=== PATIENT | female | born 1955 | race Caucasian/White ===

== ENCOUNTER 2020-08-13 17:54 | Inpatient (IN) | payer OTHER, MEDICARE ==
--- NOTE | 2020-08-13 18:38 | RADIOLOGY REPORT (SQ) ---
EXAM DESCRIPTION: ANKLE LEFT COMPLETE IMAGES COMPLETED DATE/TIME: 08/13/2020 6:25 pm REASON FOR STUDY: bed 13 - fall +deformity COMPARISON: None. NUMBER OF VIEWS: Three views. TECHNIQUE: AP, lateral, and oblique radiographic images acquired of the left ankle. LIMITATIONS: None. FINDINGS: MINERALIZATION: Normal. BONES: Comminuted fractures of the distal tibia and fibula. Distal fibular fragment is displaced med ially. There is a butterfly fragment off the TB which is displaced medially as well. JOINTS: No effusions. SOFT TISSUES: No soft tissue swelling. No foreign body. OTHER: No other significant finding. IMPRESSION: Comminuted distal tibia and fibular fractures as described. TECHNICAL DOCUMENTATION: JOB ID: [id number] 2010 [employer]- All Rights Reserved Reading location - IP/workstation name: [email or web address]
[2020-08-13] MEDS ORDERED: MORPHINE SULFATE 10 MG/ML INJ IV ONE (18:42)
[2020-08-13] MEDS ORDERED: ONDANSETRON HCL INJ/PF 4 MG/2 ML SDV IV ONE (18:42)
--- NOTE | 2020-08-13 19:01 | ER Document Report ---
ED General - General Stated Complaint: LEFT ANKLE PAIN Time Seen by Provider: 08/13/20 18:33 - HPI Notes: Chief complaint: Injury left lower leg History of present illness: Previously healthy 65-year-old female her left lower leg while attempting to feed her cat at home about 1 hour prior to arrival here. She says she simply "missed a step" and twisted the left lower leg. She heard a snap and felt pain. She was able to sit down without falling and denies other injuries. EMS was called. They applied a splint and administered analgesia during transport. She complains of 5/10 pain. She is a non-smoker. No regular medications. No known allergies. Last meal greater than 6 hours ago. - Related Data Allergies/Adverse Reactions: No Known Allergies Allergy (Unverified 08/13/20 19:39) Past Medical History - General Information source: Patient - Social History Smoking Status: Never Smoker Frequency of alcohol use: Heavy Drug Abuse: None Family History: Reviewed & Not Pertinent - Medical History Medical History: Negative Surgical Hx: Negative Review of Systems - Review of Systems Notes: Constitutional: Negative for fever. HENT: Negative for sore throat. Eyes: Negative for visual changes. Cardiovascular: Negative for chest pain. Respiratory: Negative for shortness of breath. Gastrointestinal: Negative for abdominal pain, vomiting or diarrhea. Genitourinary: Negative for dysuria. Musculoskeletal: As per HPI. Skin: Negative for rash. Neurological: Negative for headaches, weakness or numbness. 10 point ROS negative except as marked above and in HPI. Physical Exam - Vital signs Vitals: Temp Pulse Resp BP Pulse Ox 98.5 F 71 20 105/61 91 L 08/13/20 18:28 08/13/20 18:28 08/13/20 18:28 08/13/20 18:28 08/13/20 18:28 - Notes Notes: GENERAL: Slender female approximately stated age appearing in moderate discomfort with EMS splint on left lower leg.. SKIN: Good turgor no rashes. HEAD: Normocephalic atraumatic. EYES: PERRLA. EOMI. Conjunctivae and sclerae clear. EARS: CANALS AND TMS CLEAR. NOSE: CLEAR. MOUTH: Moist mucosa. Good dentition. No stridor or edema. No drooling. NECK: Supple. No masses or thyromegaly. No adenopathy. Carotids 2+ without bruits. No JVD. BACK: Symmetrical without tenderness. CHEST: Respirations unlabored. Breath sounds clear and symmetrical. HEART: Regular rhythm. No murmur gallop or rub. ABDOMEN: Soft nontender without masses, organomegaly or rebound. Bowel sounds normally active. No bruits. GENITALIA: Deferred. EXTREMITIES: Obvious deformity left lower leg with splint in situ. Distal capillary refill, motor function and sensation are intact. Dorsalis pedis posterior tibial pulses are 3+. Moderate degenerative changes of intra- phalangeal joints of both hands. Cap refill less than 1.5 seconds. Dorsalis pedis and posterior tibial pulses 3+ and symmetrical. NEUROLOGICAL: GCS 15. Alert and oriented x3. Normal gait. Fluent speech. Cranial nerves II through XII intact. Sensorimotor and cerebellar normal. Normal tone. PSYCHIATRIC: Appropriate affect. Course - Re-evaluation Re-evalutation: 08/13/20 21:00 Upon arrival son patient advises me that she drinks "about 1 bottle" of wine every day. She lives on the third floor. Findings are discussed with on-call orthopedist Dr. Juvencio Barger who is agreed to admit the patient. I splinted the extremity per his recommendation and will order a CT of the ankle without contrast as per his request. - Vital Signs Vital signs: Temp Pulse Resp BP Pulse Ox 98.5 F 71 20 105/61 91 L 08/13/20 18:28 08/13/20 18:28 08/13/20 18:28 08/13/20 18:28 08/13/20 18:28 Procedures - Immobilization Left Leg Pre-Proc Neuro Vasc Exam: Normal Immobilizer type: Short Leg Posterior, Other - Reverse sugar tong Performed by: Provider Post-Proc Neuro Vasc Exam: Normal Alignment checked and good: Yes Discharge - Discharge Clinical Impression: Fracture of tibia with fibula, left, closed Qualifiers: Encounter type: initial encounter Qualified Code(s): S82.202A - Unspecified fracture of shaft of left tibia, initial encounter for closed fracture; S82.402A - Unspecified fracture of shaft of left fibula, initial encounter for closed fracture Condition: Good Disposition: ADMITTED INPATIENT Admitting Provider: Hong Barger Unit Admitted: Surgical Floor
[2020-08-13] MEDS ORDERED: ONDANSETRON HCL INJ/PF 4 MG/2 ML SDV IV PRN (20:21)
[2020-08-13] MEDS ORDERED: MAG HYDROX/AL HYDROX/SIMETH SUSP 30 ML UDCUP PO PRN (20:21)
[2020-08-13 21:18] LABS: INTERNATIONAL RATION (INR) 0.96
[2020-08-13 21:19] LABS: ABSOLUTE MONOCYTES (AUTO) 0.4 10^3/uL (0.1-1.4); ABSOLUTE NEUT (AUTO) 3.3 10^3/uL (1.7-8.2); BASOPHILS % (AUTO) 0.4 % (0-2); EOSINOPHILS % (AUTO) 0.1 % (0-6); HEMOGLOBIN 12.8 g/dL (12.0-15.5); MEAN CORPUSCULAR HEMOGLOBIN 36.4 pg (27.0-33.4); MEAN CORPUSCULAR HGB CONC 34.6 g/dL (32.0-36.0); MEAN CORPUSCULAR VOLUME 105 fl (80-97); MONOCYTES % (AUTO) 8.2 % (3-13); PLATELET COUNT 179 10^3/uL (150-450); RED BLOOD COUNT 3.51 10^6/uL (3.72-5.28); RED CELL DISTRIBUTION WIDTH 13.2 % (11.5-14.0); SEGMENTED NEUTROPHILS % (AUTO) 70.3 % (42-78); TOTAL CELLS COUNTED % (AUTO) 100 %; WHITE BLOOD COUNT 4.7 10^3/uL (4.0-10.5)
[2020-08-13 21:43] LABS: ALBUMIN 4.1 g/dL (3.5-5.0); ALCOHOL 227 mg/dL (NONE DETECTED); ALKALINE PHOSPHATASE 117 U/L (38-126); ANION GAP 11 (5-19); ASPARTATE AMINO TRANSFERASE 412 U/L (14-36); BILIRUBIN,DIRECT 0.6 mg/dL (0.0-0.4); BILIRUBIN,TOTAL 1.6 mg/dL (0.2-1.3); BLOOD UREA NITROGEN 6 mg/dL (7-20); CALCIUM 8.7 mg/dL (8.4-10.2); CARBON DIOXIDE 28 mmol/L (22-30); CHLORIDE 98 mmol/L (98-107); GLUCOSE 102 mg/dL (75-110); POTASSIUM 3.6 mmol/L (3.6-5.0); TOTAL PROTEIN 6.3 g/dL (6.3-8.2)
--- NOTE | 2020-08-13 22:06 | RADIOLOGY REPORT (SQ) ---
EXAM DESCRIPTION: CT LOWER EXTREMITY WITHOUT IV CONTRAST COMPLETED DATE/TME: 08/13/2020 20:58 CLINICAL HISTORY: 65 years, Female, ankle injury COMPARISON: Plain films today's date TECHNIQUE: 383 Images stored on PACS. All CT scanners at this facility use dose modulation, iterative reconstruction, and/or weight based dosing when appropriate to reduce radiation dose to as low as reasonably achievable (ALARA). [facility]: Dose Right [facility]: CareDose [facility]: Dose Right [facility]: Teradose 4D [facility]: Baitianshi LIMITATIONS: None. FINDINGS: Comminuted and displaced fracture deformity of the distal tibial diaphysis with medial displacement of the largest fracture fragment by approximately 18 mm. There is also a heavily comminuted and displaced distal fibular diaphyseal fracture with overriding fracture fragments. Associated soft tissue changes. The ankle mortise remains intact. There is a prominent os trigonum noted. The subtalar joint appears intact. Incidental note is made of an intramuscular lipoma of the gastrocnemius musculature. IMPRESSION: Highly comminuted fractures of the distal tibia and fibula. The ankle mortise remains intact TECHNICAL DOCUMENTATION: Quality ID # 436: Final reports with documentation of one or more dose reduction techniques (e.g., Automated exposure control, adjustment of the mA and/or kV according to patient size, use of iterative reconstruction technique) copyright 2011 [employer]- All Rights Reserved
[2020-08-13] MEDS: ZOLPIDEM TARTRATE 5 MG TABLET PO SCH (22:08)
[2020-08-13] MEDS: ACETAMINOPHEN 325 MG TABLET PO SCH (22:09)
[2020-08-14] MEDS: POTASSI CL 20 MEQ/NS 1L 1,000 ML IV PRN ×2 (02:29→11:49)
[2020-08-14] MEDS: PANTOPRAZOLE SODIUM 20 MG TABLET.DR PO SCH (05:21)
[2020-08-14] MEDS: ACETAMINOPHEN 325 MG TABLET PO SCH ×3 (05:21→22:16)
[2020-08-14 06:24] LABS: APPEARANCE,URINE SLIGHTLY-CLOUDY; BILIRUBIN,URINE NEGATIVE (NEGATIVE); COLOR,URINE AMBER; GLUCOSE, URINE NEGATIVE (NEGATIVE); KETONES,URINE 20 mg/dL (NEGATIVE); PROTEIN,URINE 30 mg/dL (NEGATIVE); URINE SPECIFIC GRAVITY 1.028
[2020-08-14 06:37] LABS: URINE AMPHETAMINES SCREEN NEGATIVE; URINE BARBITURATES SCREEN NEGATIVE; URINE BENZODIAZEPINES SCREEN NEGATIVE; URINE COCAINE SCREEN NEGATIVE; URINE MARIJUANA (THC) SCREEN NEGATIVE; URINE METHADONE SCREEN NEGATIVE; URINE PHENCYCLIDINE SCREEN NEGATIVE
--- NOTE | 2020-08-14 07:41 | PDOC H&P ---
History of Present Illness Admission Date/PCP: 08/13/20 21:12 Patient complains of: Left camacho pain History of Present Illness: DI LOGAN is a 65 year old female who reports tripping at home twisting her left leg resulting in a pop and immediate pain and deformity. At that point she was not able to ambulate any further and reports being able to gently place herself down without striking anything else. She denies any other associated injury. Pain is described as aching in nature 6 out of 10 at rest, up to a 9 out of 10 with any potential motion. Pain is improved with pain medication, worsened with activity. She denies any lower extremity numbness or loss of motor function. She denies any progressive pain outside of proportion. Her son who presented with her in the emergency department did report she is a regular alcohol user. Past Medical History Psychiatric Medical History: Denies: Depression Social History Smoking Status: Never Smoker Electronic Cigarette use?: No Frequency of Alcohol Use: Heavy Hx Recreational Drug Use: No Drugs: None Family History Family History: Reviewed & Not Pertinent Parental Family History Reviewed: No Children Family History Reviewed: NA Sibling(s) Family History Reviewed.: NA Medication/Allergy Allergies/Adverse Reactions: No Known Allergies Allergy (Unverified 08/13/20 19:39) Review of Systems Review of Systems: Constitutional: ABSENT: anorexia, chills, night sweats Cardiovascular: ABSENT: chest pain Respiratory: ABSENT: dyspnea Gastrointestinal: ABSENT: vomiting Genitourinary: ABSENT: dysuria Integumentary: ABSENT: rash Neurological: ABSENT: confusion, memory loss, numbness Psychiatric: ABSENT: hallucinations Hematologic/Lymphatic: ABSENT: easy bleeding Physical Exam Vital Signs: Temp Pulse Resp BP Pulse Ox 98.3 F 73 16 114/61 95 08/14/20 01:05 08/14/20 01:05 08/14/20 01:05 08/14/20 01:05 08/14/20 01:05 Intake & Output 08/13/20 08/14/20 08/15/20 06:59 06:59 06:59 Intake Total 0 Output Total 200 Balance -200 Weight 64.2 kg Physical Exam: General appearance: PRESENT: no acute distress, cooperative, well-nourished Head exam: PRESENT: atraumatic, normocephalic Eye exam: PRESENT: EOMI Ear exam: PRESENT: normal external ear exam Mouth exam: PRESENT: neck supple Neck exam: ABSENT: tracheal deviation Respiratory exam: PRESENT: symmetrical, unlabored. ABSENT: accessory muscle use, wheezes Pulses: PRESENT: normal radial pulses, normal dorsalis pedis pulse Vascular exam: PRESENT: normal capillary refill GI/Abdominal exam: ABSENT: distended, firm Extremities exam: PRESENT: full ROM of bilateral shoulders, elbows wrists, knees, hips and ankles without pain Musculoskeletal exam: PRESENT: full ROM, normal inspection of all 4 extremities aside from that noted below. Neurological exam: PRESENT: alert, awake, oriented to person, oriented to place, oriented to time Psychiatric exam: PRESENT: appropriate affect. ABSENT: agitated Focused psych exam: ABSENT: catatonic Skin exam: PRESENT: intact. ABSENT: dry All as above aside from that noted in the HPI and the following: Left lower extremity -Pulses 2+ distally -Compartments soft, palpated about the splint -Sensation grossly intact to L3-4-5 S1 -Motor grossly intact to visible toes Splint currently in place, well positioned. Results Laboratory Results: 08/13/20 20:46 08/13/20 20:46 08/13/20 08/13/20 08/14/20 20:46 20:46 05:45 WBC 4.7 RBC 3.51 L Hgb 12.8 Hct 37.0 MCV 105 H MCH 36.4 H MCHC 34.6 RDW 13.2 Plt Count 179 Seg Neutrophils % 70.3 Sodium 136.7 L Potassium 3.6 Chloride 98 Carbon Dioxide 28 Anion Gap 11 BUN 6 L Creatinine 0.56 Est GFR ( Amer) > 60 Glucose 102 Calcium 8.7 Total Bilirubin 1.6 H AST 412 H Alkaline Phosphatase 117 Total Protein 6.3 Albumin 4.1 Urine Color KAREN Urine Appearance SLIGHTLY-CLOUDY Urine pH 5.0 Ur Specific [place] 1.028 Urine Protein 30 H Urine Glucose (UA) NEGATIVE Urine Ketones 20 H Urine Blood NEGATIVE Urine RBC (Auto) 4 Impressions: Ankle X-Ray 08/13/20 00:00 IMPRESSION: Comminuted distal tibia and fibular fractures as described. Lower Extremity CT 08/13/20 20:58 IMPRESSION: Highly comminuted fractures of the distal tibia and fibula. The ankle mortise remains intact TECHNICAL DOCUMENTATION: Quality ID # 436: Final reports with documentation of one or more dose reduction techniques (e.g., Automated exposure control, adjustment of the mA and/or kV according to patient size, use of iterative reconstruction technique) copyright 2011 [employer]- All Rights Reserved Assessment & Plan - Diagnosis (1) Fracture of tibia with fibula, left, closed Qualifiers: Encounter type: initial encounter Qualified Code(s): S82.202A - Unspecified fracture of shaft of left tibia, initial encounter for closed fracture; S82.402A - Unspecified fracture of shaft of left fibula, initial encounter for closed fracture Is this a current diagnosis for this admission?: Yes Plan: Plan for operative intervention today Currently not receiving DVT prophylaxis but will resume postoperatively Ancef on-call to the OR Bedrest at this time, may consider Downs catheter if needed. Keep n.p.o. Discussed intervention with the patient today and answered all questions as well as covering common risks and benefits of treatment options. Patient is elected to proceed with operative intervention of the left lower leg - Time Anticipated Discharge Disposition: Home, Self Care Anticipated Discharge Timeframe: within 72 hours
[2020-08-14] MEDS: DOCUSATE SODIUM 100 MG CAPSULE PO SCH (09:47)
[2020-08-14] MEDS: MORPHINE SULFATE 10 MG/ML INJ IV PRN (13:48)
[2020-08-14] MEDS ORDERED: MIDAZOLAM 2 MG/2 ML INJ ONE (16:44)
[2020-08-14] MEDS ORDERED: FENTANYL CITRATE INJ/PF 100 MCG/2 ML AMPUL ONE (16:44)
[2020-08-14] MEDS ORDERED: ROPIVACAINE HCL 0.5% INJ/PF (5 MG/1 ML) 30 ML SDV ONE (16:44)
[2020-08-14] MEDS ORDERED: KETAMINE HCL INJ 500 MG/10 ML VIAL ONE (16:44)
[2020-08-14] MEDS ORDERED: PROPOFOL 1,000 MG/100 ML INFUS..BTL IV ONE (16:45)
[2020-08-14] MEDS ORDERED: EPHEDRINE SULFATE INJ 50 MG/1 ML AMPULE ONE (16:45)
[2020-08-14] MEDS ORDERED: LORAZEPAM INJ 2 MG/1 ML VIAL IV PRN (17:09)
--- NOTE | 2020-08-14 17:19 | PDOC CONSULTATION ---
Consultation Consult Date: 08/14/20 Attending physician:: MATT VEGA JR Provider Consulted: JOJO BORREGO Consult reason:: medical management, ETOH withdrawal History of Present Illness Admission Date/PCP: 08/13/20 21:12 History of Present Illness: DI LOGAN is a 65 year old female with past medical history significant for alcohol abuse who presents ED after falling while trying to feed her cat. On x- ray and CT scan it was noted the patient has a acute left tibial fracture. Patient was admitted to orthopedic service and medicine was consulted for management of alcohol withdrawal. Patient states she drinks at least 1 bottle of wine per day and has done so for the past 29 years. She states she does to treat likely underlying anxiety and depression. She lives with her son who also states he has alcohol abuse problems as well. Risks and benefits of surgery discussed with patient and her son and they wish to proceed with surgery. Patient is moderate risk due to alcohol withdrawal and long-term alcohol dependency, however benefit of surgery outweighs the risk of surgery at this time. Patient does not take any medications at home. Patient was counseled extensively on alcohol cessation. LFTs and bilirubin elevated although coags are normal. UA consistent with UTI the patient denies urinary symptoms. Past Medical History Cardiac Medical History: Reports: None Psychiatric Medical History: Reports: Substance Abuse Denies: Depression Social History Information Source: Patient, Relative Lives with: Family Smoking Status: Never Smoker Electronic Cigarette use?: No Frequency of Alcohol Use: Heavy Hx Recreational Drug Use: No Drugs: None Hx Prescription Drug Abuse: No - Advance Directive Resuscitation Status: Full Code Surrogate healthcare decision maker:: son Family History Family History: Reviewed & Not Pertinent Parental Family History Reviewed: Yes Children Family History Reviewed: Yes Sibling(s) Family History Reviewed.: Yes Medication/Allergy Home Medications: Aspirin [Adult Low Dose Aspirin EC] 81 mg PO DAILY 08/14/20 Allergies/Adverse Reactions: No Known Allergies Allergy (Unverified 08/13/20 19:39) Review of Systems All systems: reviewed and no additional remarkable complaints except as stated - Review of systems per HPI, otherwise negative Physical Exam Vital Signs: Temp Pulse Resp BP Pulse Ox 98.6 F 79 18 117/62 99 08/14/20 16:52 08/14/20 16:52 08/14/20 16:52 08/14/20 16:52 10/13/20 16:52 Intake & Output 08/13/20 08/14/20 08/15/20 06:59 06:59 06:59 Intake Total 0 933 Output Total 200 Balance -200 933 Weight 64.2 kg General appearance: PRESENT: no acute distress, well-developed, well-nourished Head exam: PRESENT: atraumatic, normocephalic Eye exam: PRESENT: conjunctiva pink Mouth exam: PRESENT: moist Respiratory exam: PRESENT: clear to auscultation steven. ABSENT: rales, rhonchi, wheezes Cardiovascular exam: PRESENT: RRR. ABSENT: diastolic murmur, rubs, systolic murmur GI/Abdominal exam: PRESENT: normal bowel sounds, soft. ABSENT: distended, guarding, mass, organolmegaly, rebound, tenderness Rectal exam: PRESENT: deferred Extremities exam: PRESENT: joint swelling - Tenderness edema noted left tibia at fracture site Neurological exam: PRESENT: alert, awake, oriented to person, oriented to place, oriented to time, oriented to situation Psychiatric exam: PRESENT: anxious, normal mood Skin exam: PRESENT: dry, intact, warm Results Laboratory Results: 08/13/20 20:46 08/13/20 20:46 08/13/20 08/13/20 08/14/20 20:46 20:46 05:45 WBC 4.7 RBC 3.51 L Hgb 12.8 Hct 37.0 MCV 105 H MCH 36.4 H MCHC 34.6 RDW 13.2 Plt Count 179 Seg Neutrophils % 70.3 Sodium 136.7 L Potassium 3.6 Chloride 98 Carbon Dioxide 28 Anion Gap 11 BUN 6 L Creatinine 0.56 Est GFR ( Amer) > 60 Glucose 102 Calcium 8.7 Total Bilirubin 1.6 H AST 412 H Alkaline Phosphatase 117 Total Protein 6.3 Albumin 4.1 Urine Color KAREN Urine Appearance SLIGHTLY-CLOUDY Urine pH 5.0 Ur Specific [place] 1.028 Urine Protein 30 H Urine Glucose (UA) NEGATIVE Urine Ketones 20 H Urine Blood NEGATIVE Urine RBC (Auto) 4 Impressions: Ankle X-Ray 08/13/20 00:00 IMPRESSION: Comminuted distal tibia and fibular fractures as described. Lower Extremity CT 08/13/20 20:58 IMPRESSION: Highly comminuted fractures of the distal tibia and fibula. The ankle mortise remains intact TECHNICAL DOCUMENTATION: Quality ID # 436: Final reports with documentation of one or more dose reduction techniques (e.g., Automated exposure control, adjustment of the mA and/or kV according to patient size, use of iterative reconstruction technique) copyright 2011 [employer]- All Rights Reserved Assessment and Plan - Diagnosis (1) Alcohol abuse Is this a current diagnosis for this admission?: Yes Plan: CIWA protocol Scheduled low-dose oral Ativan As needed IV Ativan for withdrawal Vitamins, thiamine (2) Alcoholic hepatitis without ascites Is this a current diagnosis for this admission?: Yes Plan: Trend LFTs Right upper quadrant ultrasound Counseled on cessation (3) Fracture of tibia with fibula, left, closed Qualifiers: Encounter type: initial encounter Qualified Code(s): S82.202A - Unspecified fracture of shaft of left tibia, initial encounter for closed fracture; S82.402A - Unspecified fracture of shaft of left fibula, initial encounter for closed fracture Is this a current diagnosis for this admission?: Yes Plan: Per Previous Physician: "Plan for operative intervention today Currently not receiving DVT prophylaxis but will resume postoperatively Ancef on-call to the OR Bedrest at this time, may consider Downs catheter if needed. Keep n.p.o. Discussed intervention with the patient today and answered all questions as well as covering common risks and benefits of treatment options. Patient is elected to proceed with operative intervention of the left lower leg" Pain management Tibia repair on 08/14/2020 Orthopedic surgery is the primary admitting service Moderate surgical risk due to alcohol withdrawal and chronic abuse with alcoholic hepatitis, benefits outweigh the risks and patient/family agree (4) Fall at home Is this a current diagnosis for this admission?: Yes Plan: Tripped per patient while feeding her cat (5) Alcohol withdrawal Is this a current diagnosis for this admission?: Yes Plan: CIWA protocol with Ativan (6) UTI (urinary tract infection) Qualifiers: Urinary tract infection type: acute cystitis Hematuria presence: without hematuria Qualified Code(s): N30.00 - Acute cystitis without hematuria Is this a current diagnosis for this admission?: Yes Plan: UA infected, no urinary symptoms Urine culture Ceftriaxone - Time Time Spent with patient: 35 or more minutes Medications reviewed and adjusted accordingly: Yes Anticipated Discharge Disposition: Intermediate Facility Anticipated Discharge Timeframe: within 72 hours
[2020-08-14] MEDS ORDERED: CEFAZOLIN INJ 1 GM VIAL ONE (17:50)
[2020-08-14] MEDS ORDERED: MORPHINE SULFATE 10 MG/ML INJ IV PRN (18:32)
[2020-08-14] MEDS ORDERED: PROMETHAZINE HCL INJ 25 MG/1 ML VIAL IV PRN ×2 (18:32)
[2020-08-14] MEDS ORDERED: FENTANYL CITRATE INJ/PF 100 MCG/2 ML AMPUL IV PRN ×3 (18:32)
[2020-08-14] MEDS ORDERED: OXYCODONE-ACETAMINOPHEN 5-325 MG TABLET PO PRN ×2 (18:32)
[2020-08-14] MEDS ORDERED: DIPHENHYDRAMINE HCL 50 MG/ML VIAL IV PRN (18:32)
[2020-08-14] MEDS ORDERED: MEPERIDINE HCL/PF INJ 25 MG/1 ML DISP.SYRIN IV PRN (18:32)
[2020-08-14] MEDS ORDERED: ONDANSETRON HCL INJ/PF 4 MG/2 ML SDV IV PRN (18:32)
--- NOTE | 2020-08-14 19:43 | EKG REPORT ---
SEVERITY:- NORMAL ECG - SINUS RHYTHM : Confirmed by: Carlee Ba 14-Aug-2020 19:43:23
--- NOTE | 2020-08-14 20:07 | Operative Report ---
Operative Report DATE OF SURGERY: 08/14/20 PREOPERATIVE DIAGNOSIS: Left segmental tibial shaft fracture, distal, with asso ciated fibula fracture. POSTOPERATIVE DIAGNOSIS: Left segmental tibial shaft fracture, distal, with associated fibula fracture. OPERATION: Left tibial nail, left fibular nail. SURGEON: MATT VEGA JR 1ST ENGINE OILER: isidro ANESTHESIA: Spinal COMPLICATIONS: None ESTIMATED BLOOD LOSS: 300 cc PROCEDURE: Nura Valle DO, was second surgeon in this case. Patient was given a popliteal and adductor canal block preoperatively. They were then transported the operating room and were provided the spinal anesthetic in the lateral decubitus position. After this they were then transferred to ope rating table and laid supine. 2 g Ancef were provided preoperatively. The left lower extremity was prepped and draped in standard sterile fashion. An appropriate timeout was performed followed by assessing the fibula fracture under fluoroscopy. A small stab incision was made distal to the fibula. A 3 mm K wire was used to determine the entry point of the fibula distally, this was introduced and fluoroscopy was used again to shift mechanic the diameter and appropriate nail selection. A 3.5 mm fibular nail was introduced into the distal fibular fragment and then under fluoroscopy was progressed into the proximal fragment. This was in order to gain appropriate rotation and length for the tibial fixation. In order to assist and reduction, a small incision was made proximally and a ball spike was used to assist the reduction through this incision. We then turned our attention to the tibia. Incision was made direct anterior over the knee followed by careful reflection of the skin flaps to allow for appropriate limited medial parapatellar arthrotomy. After this a K wire was introduced and appropriate positioning was confirmed with fluoroscopy. This was then passed into the proximal tibia followed by an over reamer with the assistance of a soft tissue protector. A ball-tipped guidewire was then placed through this hole and guided across the fracture site into the distal tibia. Upon confirming appropriate positioning of the ball-tipped, we measured the appropriate length of the nail to 315 cm. Due to the relatively aggressive curve on the guidewire, with this was exchanged with a straight wire. We then reamed up until 12-1/2 mm obtaining appropriate chatter. The decision was made to proceed with an 11 mm nail. This was then impacted into place and appropriate position and reduction and rotation was confirmed on AP and lateral fluoroscopy. After this the proximal tibial guide was applied and 2 crossing screws were placed utilizing the trochars. We initially gauged our holes with the trochars, followed by a small skin incision followed by spreading deep bluntly with a hemostat. We drilled through the trochars and measured appropriately and subsequently placed to screws tightening appropriately with assistance of fluoroscopy and ensuring appropriate length. After this we turned our attention to the distal tibia where perfect circles were obtained. Stab incisions were made over the screw holes followed by blunt dissection with a hemostat followed by drilling with the assistance of fluoroscopy and then the application of 2 appropriate length screws. Upon obtaining AP views the proximal screw appeared to be slightly long and was exchanged for a 35 mm screw. We then placed an tear to posterior screw in the fashion as described above. Final fluoroscopy was then taken with AP and lateral at the distal tibia fracture site and then proximal tibia. The wounds were then copiously irrigated with sterile saline solution. 2-0 Monocryl was used in a portal type fashion on the stab incisions. 2-0 Monocryl was used in inverted interrupted fashion on the approximately 2 cm incision that was used to reduce the fibula. The anterior incision at the knee was closed initially with the arthrotomy approximated with #2 PDS Quill. The skin was then closed with a running barbed 2-0 Monocryl suture subcutaneously followed by a horizontal running mattress 3-0 nylon. A horizontal running mattress 3-0 nylon was also used in the 2 cm incision at the fibula. The leg was then cleaned and a new drape was placed and sterile dressings were placed with Xeroform 4 x 4's and then a sterile web roll. Finally a well-padded well molded posterior splint was applied with plaster. Patient was then awakened from anesthesia and transferred to PACU in stable condition.
[2020-08-14] MEDS ORDERED: CHLORPROMAZINE HCL INJ 25 MG/1 ML AMPULE IV PRN (21:40)
[2020-08-14] MEDS ORDERED: DIAZEPAM INJ 10 MG/2 ML DISP.SYRIN IV PRN (21:40)
[2020-08-14] MEDS ORDERED: BEER PO ONE (22:00)
[2020-08-14] MEDS ORDERED: LORAZEPAM 1 MG TABLET PO SCH (22:00)
[2020-08-14] MEDS: CEFTRIAXONE 2 GM/D5W RTU 2 GM/50 ML RTUPB IV SCH (22:15)
[2020-08-14] MEDS: THIAMINE HCL 100 MG in NORMAL SALINE 50 ML IV SCH (22:16)
[2020-08-14] MEDS: ZOLPIDEM TARTRATE 5 MG TABLET PO SCH (22:17)
[2020-08-14] MEDS: DIAZEPAM 5 MG TABLET PO SCH (22:18)
[2020-08-15] MEDS: DIAZEPAM 5 MG TABLET PO SCH ×6 (02:20→21:46)
[2020-08-15] MEDS: ACETAMINOPHEN 325 MG TABLET PO SCH ×3 (05:09→21:44)
[2020-08-15] MEDS: PANTOPRAZOLE SODIUM 20 MG TABLET.DR PO SCH (05:10)
[2020-08-15] MEDS ORDERED: BEER PO SCH (08:00)
--- NOTE | 2020-08-15 08:14 | RADIOLOGY REPORT (SQ) ---
EXAM DESCRIPTION: TIBIA FIBULA LEFT IMAGES COMPLETED DATE/TIME: 08/14/2020 8:02 pm REASON FOR STUDY: post op R16.0 HEPATOMEGALY, NOT ELSEWHERE CLASSIFIED N39.0 URINARY TRACT INFECTI ON, SITE NOT SPECIFIED status post internal fixation of comminuted distal tibia and fibular fractures COMPARISON: Intraoperative films dated 08/14/2020 conventional radiographs dated 08/13/2020 NUMBER OF VIEWS: Two views. TECHNIQUE: Two radiographic images acquired of the left tibia and fibula to include the knee and ank le in at least one projection. LIMITATIONS: Overlying artifact due to fiberglass cast. FINDINGS: MINERALIZATION: Normal. BONES: Postsurgical changes with internal fixation of the comminuted distal tibia and fibular fractur es. SOFT TISSUES: No obvious swelling or foreign body. OTHER: Lucencies are now noted overlying the calcaneus. This is most consistent with artifact from t he overlying cast. IMPRESSION: Postsurgical changes as described. TECHNICAL DOCUMENTATION: JOB ID: [id number] 2010 [employer]- All Rights Reserved Reading location - IP/workstation name: [email or web address]
--- NOTE | 2020-08-15 08:24 | RADIOLOGY REPORT (SQ) ---
EXAM DESCRIPTION: TIBIA FIBULA LEFT; NO CHG FLUORO IMAGES COMPLETED DATE/TIME: 08/14/2020 7:39 pm REASON FOR STUDY: ORIF TIB/FIB R16.0 HEPATOMEGALY, NOT ELSEWHERE CLASSIFIED N39.0 URINARY TRACT IN FECTION, SITE NOT SPECIFIED COMPARISON: None. FLUOROSCOPY TIME: 1.2 minutes Spot images saved to PACS. TECHNIQUE: Intra-operative images acquired during surgical procedure to evaluate progress. NUMBER OF IMAGES: 15 LIMITATIONS: None. FINDINGS: Fluoroscopy was provided for intraoperative procedure. Please refer to the operative repo rt for further discussion. IMPRESSION: IMAGE(S) OBTAINED DURING PROCEDURE. COMMENT: Quality ID 145: Final reports for procedures using fluoroscopy that document radiation exp osure indices, or exposure time and number of fluorographic images (if radiation exposure indices are not available) Please consult full operative report of the attending physician for description of the procedure. TECHNICAL DOCUMENTATION: JOB ID: [id number] 2010 [employer]- All Rights Reserved Reading location - IP/workstation name: [email or web address]
--- NOTE | 2020-08-15 08:24 | RADIOLOGY REPORT (SQ) ---
EXAM DESCRIPTION: TIBIA FIBULA LEFT; NO CHG FLUORO IMAGES COMPLETED DATE/TIME: 08/14/2020 7:39 pm REASON FOR STUDY: ORIF TIB/FIB R16.0 HEPATOMEGALY, NOT ELSEWHERE CLASSIFIED N39.0 URINARY TRACT IN FECTION, SITE NOT SPECIFIED COMPARISON: None. FLUOROSCOPY TIME: 1.2 minutes Spot images saved to PACS. TECHNIQUE: Intra-operative images acquired during surgical procedure to evaluate progress. NUMBER OF IMAGES: 15 LIMITATIONS: None. FINDINGS: Fluoroscopy was provided for intraoperative procedure. Please refer to the operative repo rt for further discussion. IMPRESSION: IMAGE(S) OBTAINED DURING PROCEDURE. COMMENT: Quality ID 145: Final reports for procedures using fluoroscopy that document radiation exp osure indices, or exposure time and number of fluorographic images (if radiation exposure indices are not available) Please consult full operative report of the attending physician for description of the procedure. TECHNICAL DOCUMENTATION: JOB ID: [id number] 2010 [employer]- All Rights Reserved Reading location - IP/workstation name: [email or web address]
[2020-08-15] MEDS ORDERED: PHARMACY COMMUNICATION ORDER MC SCH (10:00)
[2020-08-15] MEDS: ASPIRIN 325 MG TABLET PO SCH (10:49)
[2020-08-15] MEDS: MULTIVITAMIN TABLET PO SCH (10:50)
[2020-08-15] MEDS: DOCUSATE SODIUM 100 MG CAPSULE PO SCH (10:50)
--- NOTE | 2020-08-15 11:06 | PDOC PROGRESS REPORT ---
Subjective Progress Note for:: 08/15/20 Subjective:: Patient denies any significant pain she has the ability to move her toes but still has some numbness in the leg secondary to the block dressing is intact patient has 2+ dorsalis pedis pulse. No calf tenderness other than tenderness by the fracture site. Reason For Visit: TIB/FIB FRACTURE Physical Exam Vital Signs: Temp Pulse Resp BP Pulse Ox 98.7 F 82 16 116/65 92 08/15/20 04:02 08/15/20 04:02 08/15/20 04:02 08/15/20 04:02 08/15/20 04:02 Intake & Output 08/14/20 08/15/20 08/16/20 06:59 06:59 06:59 Intake Total 0 3609 Output Total 200 510 Balance -200 3099 Weight 64.2 kg 65.4 kg General appearance: PRESENT: no acute distress Vascular exam: PRESENT: normal capillary refill Additional comments: Patient's dressing is intact patient reports no pain as the block has not worn off completely patient needs significant assistance as she is weight bearing only on the right lower extremity nonweightbearing on the left lower extremity she has 2+ dorsalis pedis pulse patient has no significant swelling able to move her toes. Results Laboratory Results: 08/13/20 20:46 08/13/20 20:46 Impressions: Ankle X-Ray 08/13/20 00:00 IMPRESSION: Comminuted distal tibia and fibular fractures as described. Lower Extremity CT 08/13/20 20:58 IMPRESSION: Highly comminuted fractures of the distal tibia and fibula. The ankle mortise remains intact TECHNICAL DOCUMENTATION: Quality ID # 436: Final reports with documentation of one or more dose reduction techniques (e.g., Automated exposure control, adjustment of the mA and/or kV according to patient size, use of iterative reconstruction technique) copyright 2011 [employer]- All Rights Reserved Fluoroscopy 08/14/20 00:00 IMPRESSION: IMAGE(S) OBTAINED DURING PROCEDURE. Tibia/Fibula X-Ray 08/14/20 00:00 IMPRESSION: IMAGE(S) OBTAINED DURING PROCEDURE. Assessment & Plan - Time Anticipated Discharge Disposition: Shelter Facility Anticipated Discharge Timeframe: within 72 hours - The patient is unlikely to be able to go home as she lives on the third floor by herself she is nonweightbearing on the left lower extremity and she has gotten only 10 to 15 feet with significant assistance and I believe that would be a danger and high risk of falling or injury.
[2020-08-15] MEDS: CEFTRIAXONE 2 GM/D5W RTU 2 GM/50 ML RTUPB IV SCH (17:10)
--- NOTE | 2020-08-15 18:32 | PDOC PROGRESS REPORT ---
Subjective Subjective:: DI LOGAN is a 65 year old female with past medical history significant for alcohol abuse who presents ED after falling while trying to feed her cat. On x- ray and CT scan it was noted the patient has a acute left tibial fracture. Patient was admitted to orthopedic service and medicine was consulted for management of alcohol withdrawal. Patient states she drinks at least 1 bottle of wine per day and has done so for the past 29 years. She states she does to treat likely underlying anxiety and depression. She lives with her son who also states he has alcohol abuse problems as well. Risks and benefits of surgery discussed with patient and her son and they wish to proceed with surgery. Patient is moderate risk due to alcohol withdrawal and long-term alcohol dependency, however benefit of surgery outweighs the risk of surgery at this time. Patient does not take any medications at home. Patient was counseled extensively on alcohol cessation. LFTs and bilirubin elevated although coags are normal. UA consistent with UTI the patient denies urinary symptoms. 08/15/2020 Patient's son came into the hospital today belligerent and yelling at the nursing staff that he did not understand the plan. I called him and discussed the plan in great detail with him and he is in agreement with this now. I dis cussed with the patient that it is unacceptable for family members to be abusive to the nursing staff and she agreed. I have taken over as primary attending after my discussion with Dr. Barger this morning. Apparently, patient was given beer overnight which is probably is not the best course of action given we are trying to get the patient through withdrawal and get her off of alcohol entirely. It should be giving her benzos rather than adding alcohol and I have stopped the beer order. This beer order in particular made the patient's son extremely angry. Do not give the patient any alcohol throughout the rest of this admission. She can likely be discharged to SNF in the next 2 days. Reason For Visit: FRACTURED TIB/FIB, ALCOHOL WITHDRAWAL Physical Exam Vital Signs: Temp Pulse Resp BP Pulse Ox 97.8 F 89 12 112/61 94 08/15/20 17:11 08/15/20 17:11 08/15/20 17:11 08/15/20 17:11 08/15/20 17:11 Intake & Output 08/14/20 08/15/20 08/16/20 06:59 06:59 06:59 Intake Total 0 3609 Output Total 200 510 Balance -200 3099 Weight 64.2 kg 65.4 kg Exam: General appearance: PRESENT: no acute distress, well-developed, well-nourished Head exam: PRESENT: atraumatic, normocephalic Eye exam: PRESENT: conjunctiva pink Mouth exam: PRESENT: moist Respiratory exam: PRESENT: clear to auscultation steven. ABSENT: rales, rhonchi, wheezes Cardiovascular exam: PRESENT: RRR. ABSENT: diastolic murmur, rubs, systolic murmur GI/Abdominal exam: PRESENT: normal bowel sounds, soft. ABSENT: distended, guarding, mass, organolmegaly, rebound, tenderness Rectal exam: PRESENT: deferred Extremities exam: PRESENT: joint swelling - Tenderness and edema noted left tibia at fracture site, healing Neurological exam: PRESENT: alert, awake, oriented to person, oriented to place, oriented to time, oriented to situation Psychiatric exam: PRESENT: anxious, normal mood Skin exam: PRESENT: dry, intact, warm Results Laboratory Results: 08/13/20 20:46 08/13/20 20:46 Impressions: Ankle X-Ray 08/13/20 00:00 IMPRESSION: Comminuted distal tibia and fibular fractures as described. Lower Extremity CT 08/13/20 20:58 IMPRESSION: Highly comminuted fractures of the distal tibia and fibula. The ankle mortise remains intact TECHNICAL DOCUMENTATION: Quality ID # 436: Final reports with documentation of one or more dose reduction techniques (e.g., Automated exposure control, adjustment of the mA and/or kV according to patient size, use of iterative reconstruction technique) copyright 2011 [employer]- All Rights Reserved Fluoroscopy 08/14/20 00:00 IMPRESSION: IMAGE(S) OBTAINED DURING PROCEDURE. Tibia/Fibula X-Ray 08/14/20 00:00 IMPRESSION: IMAGE(S) OBTAINED DURING PROCEDURE. Assessment and Plan - Diagnosis (1) Alcohol abuse Is this a current diagnosis for this admission?: Yes Plan: [facility] protocol Scheduled low-dose oral Ativan As needed IV Ativan for withdrawal Vitamins, thiamine Counseled on cessation (2) Alcoholic hepatitis without ascites Is this a current diagnosis for this admission?: Yes Plan: Trend LFTs Right upper quadrant ultrasound Counseled on cessation Improving (3) Fracture of tibia with fibula, left, closed Qualifiers: Encounter type: initial encounter Qualified Code(s): S82.202A - Unspecified fracture of shaft of left tibia, initial encounter for closed fracture; S82.402A - Unspecified fracture of shaft of left fibula, initial encounter for closed fracture Is this a current diagnosis for this admission?: Yes Plan: Per Previous Physician: "Plan for operative intervention today Currently not receiving DVT prophylaxis but will resume postoperatively Ancef on-call to the OR Bedrest at this time, may consider Downs catheter if needed. Keep n.p.o. Discussed intervention with the patient today and answered all questions as well as covering common risks and benefits of treatment options. Patient is elected to proceed with operative intervention of the left lower leg" Pain management Tibia repair on 08/14/2020 Orthopedic surgery was initially the primary admitting service and hospitalist service has now taken over care as of 08/15 Moderate surgical risk due to alcohol withdrawal and chronic abuse with alco holic hepatitis, benefits outweigh the risks and patient/family agree (4) Fall at home Is this a current diagnosis for this admission?: Yes (5) Alcohol withdrawal Is this a current diagnosis for this admission?: Yes Plan: [facility] protocol with Ativan Given beer by orthopedic surgery overnight on 08/14, order has been discontinued, do not give patient alcohol in the future as family became quite angry that she was given this (6) UTI (urinary tract infection) Qualifiers: Urinary tract infection type: acute cystitis Hematuria presence: without hematuria Qualified Code(s): N30.00 - Acute cystitis without hematuria Is this a current diagnosis for this admission?: Yes - Time Time Spent with patient: 35 or more minutes Medications reviewed and adjusted accordingly: Yes Anticipated Discharge Disposition: Residential Facility Anticipated Discharge Timeframe: within 48 hours - Inpatient Certification Based on my medical assessment, after consideration of the patient's comorbidities, presenting symptoms, or acuity I expect that the services needed warrant INPATIENT care.: Yes I certify that my determination is in accordance with my understanding of Medicare's requirements for reasonable and necessary INPATIENT services [42 CFR 412.3e].: Yes Medical Necessity: Significant Comorbidiites Make Outpatient Treatment Too Risky, Need Close Monitoring Due to Risk of Patient Decompensation, Need for IV Antibiotics, Risk of Complication if Not Cared For in Hospital, Risk of Diagnosis Which Will Require Inpatient Eval/Care/Monitoring
[2020-08-15] MEDS: OXYCODONE HCL IR 5 MG TABLET PO PRN (19:47)
[2020-08-15] MEDS: MORPHINE SULFATE 10 MG/ML INJ IV PRN (21:43)
[2020-08-15] MEDS: ZOLPIDEM TARTRATE 5 MG TABLET PO SCH (21:46)
[2020-08-15] MEDS: THIAMINE HCL 100 MG in NORMAL SALINE 50 ML IV SCH (21:46)
[2020-08-16] MEDS: DIAZEPAM 5 MG TABLET PO SCH ×4 (01:56→14:55)
[2020-08-16] MEDS: ACETAMINOPHEN 325 MG TABLET PO SCH ×2 (05:12→14:55)
[2020-08-16] MEDS: PANTOPRAZOLE SODIUM 20 MG TABLET.DR PO SCH (05:12)
[2020-08-16 05:54] LABS: ABSOLUTE MONOCYTES (AUTO) 0.5 10^3/uL (0.1-1.4); ABSOLUTE NEUT (AUTO) 2.3 10^3/uL (1.7-8.2); BASOPHILS % (AUTO) 0.4 % (0-2); EOSINOPHILS % (AUTO) 0.2 % (0-6); HEMATOCRIT 22.5 % (36.0-47.0); LYMPHOCYTES % (AUTO) 26.5 % (13-45); MEAN CORPUSCULAR HEMOGLOBIN 37.8 pg (27.0-33.4); MEAN CORPUSCULAR HGB CONC 35.3 g/dL (32.0-36.0); MEAN CORPUSCULAR VOLUME 107 fl (80-97); MONOCYTES % (AUTO) 11.9 % (3-13); RED CELL DISTRIBUTION WIDTH 12.9 % (11.5-14.0); TOTAL CELLS COUNTED % (AUTO) 100 %; WHITE BLOOD COUNT 3.8 10^3/uL (4.0-10.5)
[2020-08-16 05:59] LABS: BLOOD UREA NITROGEN 6 mg/dL (7-20); CALCIUM 8.5 mg/dL (8.4-10.2); CHLORIDE 100 mmol/L (98-107); GLUCOSE 100 mg/dL (75-110); POTASSIUM 3.3 mmol/L (3.6-5.0)
[2020-08-16 06:12] LABS: CARBON DIOXIDE 32 mmol/L (22-30)
[2020-08-16 06:14] LABS: ANION GAP 3 (5-19)
[2020-08-16 06:31] LABS: HEMOGLOBIN 7.9 g/dL (12.0-15.5)
[2020-08-16 06:39] LABS: PLATELET COUNT 108 10^3/uL (150-450)
[2020-08-16 08:38] LABS: HEPATITS B SURFACE ANTIGEN Negative (Negative)
[2020-08-16 09:03] LABS: HEPATITIS C VIRUS ANTIBODY <0.1 s/co ratio (0.0-0.9)
[2020-08-16] MEDS: POTASSIUM CHLORIDE 20 MEQ PACKET PO SCH ×2 (09:27→21:31)
[2020-08-16] MEDS: MULTIVITAMIN TABLET PO SCH (09:27)
[2020-08-16] MEDS: ASPIRIN 325 MG TABLET PO SCH (09:27)
[2020-08-16] MEDS: DOCUSATE SODIUM 100 MG CAPSULE PO SCH (09:27)
[2020-08-16 10:55] LABS: ABSOLUTE LYMPHOCYTES (AUTO) 0.9 10^3/uL (0.5-4.7); ABSOLUTE MONOCYTES (AUTO) 0.5 10^3/uL (0.1-1.4); ABSOLUTE NEUT (AUTO) 2.7 10^3/uL (1.7-8.2); BASOPHILS % (AUTO) 0.5 % (0-2); EOSINOPHILS % (AUTO) 0.4 % (0-6); HEMATOCRIT 23.9 % (36.0-47.0); HEMOGLOBIN 8.5 g/dL (12.0-15.5); LYMPHOCYTES % (AUTO) 21.5 % (13-45); MEAN CORPUSCULAR HEMOGLOBIN 37.8 pg (27.0-33.4); MEAN CORPUSCULAR HGB CONC 35.5 g/dL (32.0-36.0); MEAN CORPUSCULAR VOLUME 107 fl (80-97); MONOCYTES % (AUTO) 11.7 % (3-13); PLATELET COUNT 122 10^3/uL (150-450); RED BLOOD COUNT 2.24 10^6/uL (3.72-5.28); RED CELL DISTRIBUTION WIDTH 12.9 % (11.5-14.0); SEGMENTED NEUTROPHILS % (AUTO) 65.9 % (42-78); TOTAL CELLS COUNTED % (AUTO) 100 %
--- NOTE | 2020-08-16 17:33 | PDOC PROGRESS REPORT ---
Subjective Subjective:: DI LOGAN is a 65 year old female with past medical history significant for alcohol abuse who presents ED after falling while trying to feed her cat. On x- ray and CT scan it was noted the patient has a acute left tibial fracture. Patient was admitted to orthopedic service and medicine was consulted for management of alcohol withdrawal. Patient states she drinks at least 1 bottle of wine per day and has done so for the past 29 years. She states she does to treat likely underlying anxiety and depression. She lives with her son who also states he has alcohol abuse problems as well. Risks and benefits of surgery discussed with patient and her son and they wish to proceed with surgery. Patient is moderate risk due to alcohol withdrawal and long-term alcohol dependency, however benefit of surgery outweighs the risk of surgery at this time. Patient does not take any medications at home. Patient was counseled extensively on alcohol cessation. LFTs and bilirubin elevated although coags are normal. UA consistent with UTI the patient denies urinary symptoms. 08/15/2020 Patient's son came into the hospital today belligerent and yelling at the nursing staff that he did not understand the plan. I called him and discussed the plan in great detail with him and he is in agreement with this now. I dis cussed with the patient that it is unacceptable for family members to be abusive to the nursing staff and she agreed. I have taken over as primary attending after my discussion with Dr. Barger this morning. Apparently, patient was given beer overnight which is probably is not the best course of action given we are trying to get the patient through withdrawal and get her off of alcohol entirely. It should be giving her benzos rather than adding alcohol and I have stopped the beer order. This beer order in particular made the patient's son extremely angry. Do not give the patient any alcohol throughout the rest of this admission. She can likely be discharged to SNF in the next 2 days. 08/16/2020 Patient feeling quite well, calm, does not seem to be agitated or anxious today. Her hemoglobin had acute drop and I rechecked this which showed a higher value than previously. She denies any bleeding of any source. Plan for patient be discharged to SNF tomorrow. Potassium is low and this will be repleted. Urine culture is negative Reason For Visit: FRACTURED TIB/FIB, ALCOHOL WITHDRAWAL Physical Exam Vital Signs: Temp Pulse Resp BP Pulse Ox 98.5 F 84 17 114/62 97 10/15/20 16:00 08/16/20 16:00 08/16/20 16:00 08/16/20 16:00 08/16/20 16:00 Intake & Output 08/15/20 08/16/20 08/17/20 06:59 06:59 06:59 Intake Total 3609 1101 496 Output Total 510 Balance 3099 1101 496 Weight 65.4 kg 64 kg Exam: General appearance: PRESENT: no acute distress, well-developed, well-nourished, calm and well-appearing Head exam: PRESENT: atraumatic, normocephalic Eye exam: PRESENT: conjunctiva pink Mouth exam: PRESENT: moist Respiratory exam: PRESENT: clear to auscultation steven. ABSENT: rales, rhonchi, wheezes Cardiovascular exam: PRESENT: RRR. ABSENT: diastolic murmur, rubs, systolic murmur GI/Abdominal exam: PRESENT: normal bowel sounds, soft. ABSENT: distended, guarding, mass, organolmegaly, rebound, tenderness Rectal exam: PRESENT: deferred Extremities exam: PRESENT: joint swelling - Tenderness and edema noted left tibia at fracture site, healing Neurological exam: PRESENT: alert, awake, oriented to person, oriented to place, oriented to time, oriented to situation Psychiatric exam: PRESENT: anxious, normal mood Skin exam: PRESENT: dry, intact, warm Results Laboratory Results: 08/16/20 10:30 08/16/20 04:46 08/16/20 08/16/20 08/16/20 04:46 04:46 10:30 WBC 3.8 L 4.0 RBC 2.10 L 2.24 L Hgb 7.9 L D 8.5 L Hct 22.5 L 23.9 L MCV 107 H 107 H MCH 37.8 H 37.8 H MCHC 35.3 35.5 RDW 12.9 12.9 Plt Count 108 L 122 L Seg Neutrophils % 61.0 65.9 Sodium 135.1 L Potassium 3.3 L Chloride 100 Carbon Dioxide 32 H Anion Gap 3 L BUN 6 L Creatinine 0.69 Est GFR ( Amer) > 60 Glucose 100 Calcium 8.5 Impressions: Ankle X-Ray 08/13/20 00:00 IMPRESSION: Comminuted distal tibia and fibular fractures as described. Lower Extremity CT 08/13/20 20:58 IMPRESSION: Highly comminuted fractures of the distal tibia and fibula. The ankle mortise remains intact TECHNICAL DOCUMENTATION: Quality ID # 436: Final reports with documentation of one or more dose reduction techniques (e.g., Automated exposure control, adjustment of the mA and/or kV according to patient size, use of iterative reconstruction technique) copyright 2011 [employer]- All Rights Reserved Fluoroscopy 08/14/20 00:00 IMPRESSION: IMAGE(S) OBTAINED DURING PROCEDURE. Tibia/Fibula X-Ray 08/14/20 00:00 IMPRESSION: IMAGE(S) OBTAINED DURING PROCEDURE. Assessment and Plan - Diagnosis (1) Alcohol abuse Is this a current diagnosis for this admission?: Yes Plan: [facility] protocol Scheduled low-dose oral Ativan As needed IV Ativan for withdrawal Vitamins, thiamine Counseled on cessation Alcohol withdrawal resolving (2) Alcoholic hepatitis without ascites Is this a current diagnosis for this admission?: Yes Plan: Trend LFTs Right upper quadrant ultrasound Counseled on cessation Improving (3) Fracture of tibia with fibula, left, closed Qualifiers: Encounter type: initial encounter Qualified Code(s): S82.202A - Unspecified fracture of shaft of left tibia, initial encounter for closed fracture; S82.402A - Unspecified fracture of shaft of left fibula, initial encounter for closed fracture Is this a current diagnosis for this admission?: Yes Plan: Per Previous Physician: "Plan for operative intervention today Currently not receiving DVT prophylaxis but will resume postoperatively Ancef on-call to the OR Bedrest at this time, may consider Downs catheter if needed. Keep n.p.o. Discussed intervention with the patient today and answered all questions as well as covering common risks and benefits of treatment options. Patient is elected to proceed with operative intervention of the left lower leg" Pain management Tibia repair on 08/14/2020 Orthopedic surgery was initially the primary admitting service and hospitalist service has now taken over care as of 08/15 Moderate surgical risk due to alcohol withdrawal and chronic abuse with alcoholic hepatitis, benefits outweigh the risks and patient/family agree Discharge to SNF (4) Fall at home Is this a current diagnosis for this admission?: Yes (5) Alcohol withdrawal Is this a current diagnosis for this admission?: Yes (6) UTI (urinary tract infection) Qualifiers: Urinary tract infection type: acute cystitis Hematuria presence: without hematuria Qualified Code(s): N30.00 - Acute cystitis without hematuria Is this a current diagnosis for this admission?: Yes - Time Time Spent with patient: 15-24 minutes Medications reviewed and adjusted accordingly: Yes Anticipated Discharge Disposition: Halfway Facility Anticipated Discharge Timeframe: within 24 hours - Inpatient Certification Based on my medical assessment, after consideration of the patient's comorbidities, presenting symptoms, or acuity I expect that the services needed warrant INPATIENT care.: Yes I certify that my determination is in accordance with my understanding of Medicare's requirements for reasonable and necessary INPATIENT services [42 CFR 412.3e].: Yes Medical Necessity: Significant Comorbidiites Make Outpatient Treatment Too Risky, Need Close Monitoring Due to Risk of Patient Decompensation, Need for IV Antibiotics, Risk of Complication if Not Cared For in Hospital, Risk of Diagnosis Which Will Require Inpatient Eval/Care/Monitoring
[2020-08-16] MEDS: CEFTRIAXONE 2 GM/D5W RTU 2 GM/50 ML RTUPB IV SCH (17:36)
[2020-08-16 19:34] LABS: ABSOLUTE RETICS # 0.085 10^6/uL (0.028-0.122); RETICULOCYTE COUNT (AUTO) 3.83 % (0.66-2.85)
[2020-08-16] MEDS: THIAMINE HCL 100 MG in NORMAL SALINE 50 ML IV SCH (21:30)
[2020-08-16] MEDS: ZOLPIDEM TARTRATE 5 MG TABLET PO SCH (21:31)
[2020-08-17] MEDS: MORPHINE SULFATE 10 MG/ML INJ IV PRN (00:53)
[2020-08-17] MEDS: OXYCODONE HCL IR 5 MG TABLET PO PRN ×2 (05:14→19:56)
[2020-08-17] MEDS: PANTOPRAZOLE SODIUM 20 MG TABLET.DR PO SCH (05:14)
[2020-08-17] MEDS: DOCUSATE SODIUM 100 MG CAPSULE PO SCH (10:16)
[2020-08-17] MEDS: MULTIVITAMIN TABLET PO SCH (10:16)
[2020-08-17] MEDS: ASPIRIN 325 MG TABLET PO SCH (10:16)
--- NOTE | 2020-08-17 13:16 | PDOC TRANSFER SUMMARY ---
Impression - Admit/DC Date/PCP Admission Date/Primary Care Provider: 08/15/20 16:12 Discharge Date: 08/17/20 - Discharge Diagnosis (1) Fracture of tibia with fibula, left, closed Is this a current diagnosis for this admission?: Yes - Additional Information Resuscitation Status: Full Code Discharge Diet: As Tolerated Discharge Activity: Activity As Tolerated, No Driving, Keep Legs Elevated, Slowly Increase Activity, No tub bath Prescriptions: Oxycodone HCl [Oxy-Ir 5 mg Tablet] 5 mg PO Q4HP PRN #30 tablet PRN Reason: Pain Scale Of 4 Aspirin [Aspir-Arely] 325 mg PO DAILY PRN #1 pkg PRN Reason: Home Medications: Acetaminophen [Tylenol 325 mg Tablet] 975 mg PO Q8 tablet 08/14/20 Aspirin [Aspir-Arely] 325 mg PO DAILY PRN #1 pkg 08/14/20 Diphenhydramine HCl [Benadryl Inj 50 mg/1 ml Vial] 12.5 mg IV .WHILE IN PACU PRN vial 08/14/20 Docusate Sodium [Colace 100 mg Capsule] 100 mg PO DAILY capsule 08/14/20 Multivitamin [Tab-A-Izaiah (Multiple Vitamin) Tablet] 1 tab PO DAILY tablet 08/14/20 Oxycodone HCl [Oxy-Ir 5 mg Tablet] 5 mg PO Q4HP PRN #30 tablet 08/14/20 History of Present Illiness History of Present Illness: DI LOGAN is a 65 year old female with past medical history significant for alcohol abuse who presents ED after falling while trying to feed her cat. On x- ray and CT scan it was noted the patient has a acute left tibial fracture. Patient was admitted to orthopedic service and medicine was consulted for management of alcohol withdrawal. Patient sustained a fall onto her left leg resulting in a tibial fracture. Pain with with any motion and extended ambulation. Hospital Course Hospital Course: Patient underwent intramedullary nail left tibial shaft fracture on 08/14/2020. Patient tolerated procedure well. Postoperatively she did become belligerent most likely secondary to alcohol withdrawal. She has been managed by the hospitalist and has seen notable improvement. Currently on 08/17/2020 patient's pain notably improved. No issues overnight. Denies numbness or tingling. Does have some discomfort with attempted motion. Has been undergoing physical therapy. Patient did have acute on chronic blood loss anemia although H&H did improve on postop day #2. Denies headache dizziness or loss of conscious. Denies chest pain shortness of breath. Physical Exam Vital Signs: Temp Pulse Resp BP Pulse Ox 97.4 F 79 18 124/63 94 08/17/20 12:13 08/17/20 12:13 08/17/20 12:13 08/17/20 12:13 08/17/20 12:13 Intake & Output 08/16/20 08/17/20 08/18/20 06:59 06:59 06:59 Intake Total 1101 933 357 Balance 1101 933 357 Weight 64 kg 65 kg General appearance: PRESENT: no acute distress, well-developed, well-nourished Head exam: PRESENT: atraumatic, normocephalic Eye exam: PRESENT: conjunctiva pink, EOMI, PERRLA. ABSENT: scleral icterus Ear exam: PRESENT: normal external ear exam Mouth exam: PRESENT: moist, tongue midline Neck exam: ABSENT: carotid bruit, JVD, lymphadenopathy, thyromegaly Respiratory exam: PRESENT: clear to auscultation steven. ABSENT: rales, rhonchi, wheezes Cardiovascular exam: PRESENT: RRR. ABSENT: diastolic murmur, rubs, systolic murmur Pulses: PRESENT: normal dorsalis pedis pul Vascular exam: PRESENT: normal capillary refill GI/Abdominal exam: PRESENT: normal bowel sounds, soft. ABSENT: distended, guarding, mass, organolmegaly, rebound, tenderness Rectal exam: PRESENT: deferred Extremities exam: PRESENT: full ROM. ABSENT: calf tenderness, clubbing, pedal edema Musculoskeletal exam: PRESENT: other - Left lower extremity: Splint intact. Mild shadowing along the posterior aspect. Intact flexion-extension of the toes. Cap refill less than 2 seconds. Compartments soft and compressible no sign of compartment syndrome. No pain with passive stretch. Neurological exam: PRESENT: alert, awake, oriented to person, oriented to place, oriented to time, oriented to situation, CN II-XII grossly intact. ABSENT: motor sensory deficit Psychiatric exam: PRESENT: appropriate affect, normal mood. ABSENT: homicidal ideation, suicidal ideation Skin exam: PRESENT: dry, intact, warm. ABSENT: cyanosis, rash Results Laboratory Results: WBC 4.0 10^3/uL (4.0-10.5) 08/16/20 10:30 RBC 2.24 10^6/uL (3.72-5.28) L 08/16/20 10:30 Hgb 8.5 g/dL (12.0-15.5) L 08/16/20 10:30 Hct 23.9 % (36.0-47.0) L 08/16/20 10:30 MCV 107 fl (80-97) H 08/16/20 10:30 MCH 37.8 pg (27.0-33.4) H 08/16/20 10:30 MCHC 35.5 g/dL (32.0-36.0) 08/16/20 10:30 RDW 12.9 % (11.5-14.0) 08/16/20 10:30 Plt Count 122 10^3/uL (150-450) L 08/16/20 10:30 Lymph % (Auto) 21.5 % (13-45) 08/16/20 10:30 [place] % (Auto) 11.7 % (3-13) 08/16/20 10:30 Eos % (Auto) 0.4 % (0-6) 08/16/20 10:30 Baso % (Auto) 0.5 % (0-2) 08/16/20 10:30 Reticulocyte # 0.085 10^6/uL (0.028-0.122) 08/16/20 18:33 Absolute Neuts (auto) 2.7 10^3/uL (1.7-8.2) 08/16/20 10:30 Absolute Lymphs (auto) 0.9 10^3/uL (0.5-4.7) 08/16/20 10:30 Absolute Monos (auto) 0.5 10^3/uL (0.1-1.4) 08/16/20 10:30 Absolute Eos (auto) 0.0 10^3/uL (0.0-0.6) 08/16/20 10:30 Absolute Basos (auto) 0.0 10^3/uL (0.0-0.2) 08/16/20 10:30 Seg Neutrophils % 65.9 % (42-78) 08/16/20 10:30 Retic Count (auto) 3.83 % (0.66-2.85) H 08/16/20 18:33 PT 13.0 SEC (11.4-15.4) 08/13/20 20:46 INR 0.96 08/13/20 20:46 Sodium 135.1 mmol/L (137-145) L 08/16/20 04:46 Potassium 3.3 mmol/L (3.6-5.0) L 08/16/20 04:46 Chloride 100 mmol/L (98-107) 08/16/20 04:46 Carbon Dioxide 32 mmol/L (22-30) H 08/16/20 04:46 Anion Gap 3 (5-19) L 08/16/20 04:46 BUN 6 mg/dL (7-20) L 08/16/20 04:46 Creatinine 0.69 mg/dL (0.52-1.25) 08/16/20 04:46 Est GFR ( Amer) > 60 (>60) 08/16/20 04:46 Est GFR (MDRD) Non-Af > 60 (>60) 08/16/20 04:46 Glucose 100 mg/dL (75-110) 08/16/20 04:46 Calcium 8.5 mg/dL (8.4-10.2) 08/16/20 04:46 Iron 51.0 ug/dL (37-170) 08/16/20 18:33 TIBC 197 ug/dL (250-450) L 08/16/20 18:33 % Saturation 26 % 08/16/20 18:33 Ferritin 1190.00 ng/mL (11.1-264.0) H 08/16/20 18:33 Total Bilirubin 1.6 mg/dL (0.2-1.3) H 08/13/20 20:46 Direct Bilirubin 0.6 mg/dL (0.0-0.4) H 08/13/20 20:46 Neonat Total Bilirubin Not Reportable 08/13/20 20:46 Neonat Direct Bilirubin Not Reportable 08/13/20 20:46 Neonat Indirect Bili Not Reportable 08/13/20 20:46 AST 412 U/L (14-36) H 08/13/20 20:46 ALT 127 U/L (<35) H 08/13/20 20:46 Alkaline Phosphatase 117 U/L (38-126) 08/13/20 20:46 Total Protein 6.3 g/dL (6.3-8.2) 08/13/20 20:46 Albumin 4.1 g/dL (3.5-5.0) 08/13/20 20:46 Vitamin B12 581.0 pg/mL (239-931) 08/16/20 18:33 Folate 9.00 ng/mL (>2.76) 08/16/20 18:33 Urine Color KAREN 08/14/20 05:45 Urine Appearance SLIGHTLY-CLOUDY 08/14/20 05:45 Urine pH 5.0 (5.0-9.0) 08/14/20 05:45 Ur Specific [place] 1.028 08/14/20 05:45 Urine Protein 30 mg/dL (NEGATIVE) H 08/14/20 05:45 Urine Glucose (UA) NEGATIVE mg/dL (NEGATIVE) 08/14/20 05:45 Urine Ketones 20 mg/dL (NEGATIVE) H 08/14/20 05:45 Urine Blood NEGATIVE (NEGATIVE) 08/14/20 05:45 Urine Nitrite (Reflex) POSITIVE (NEGATIVE) H 08/14/20 05:45 Urine Bilirubin NEGATIVE (NEGATIVE) 08/14/20 05:45 Urine Urobilinogen 4.0 mg/dL (<2.0) H 08/14/20 05:45 Leukocyte Esterase Rfl TRACE (NEGATIVE) H 08/14/20 05:45 Urine RBC (Auto) 4 /HPF 08/14/20 05:45 U Hyaline Cast (Auto) 13 /LPF 08/14/20 05:45 Urine Bacteria (Auto) 3+ /HPF 08/14/20 05:45 Urine WBC (Reflex) 25 /HPF 08/14/20 05:45 Squamous Epi Cells Auto 9 /HPF 08/14/20 05:45 Urine Mucus (Auto) MANY /LPF 08/14/20 05:45 Urine Ascorbic Acid 40 (NEGATIVE) H 08/14/20 05:45 Urine Opiates Screen UNCONFIRMED POSITIVE 08/14/20 05:45 Urine Methadone Screen NEGATIVE 08/14/20 05:45 Ur Barbiturates Screen NEGATIVE 08/14/20 05:45 Ur Phencyclidine Scrn NEGATIVE 08/14/20 05:45 Ur Amphetamines Screen NEGATIVE 08/14/20 05:45 U Benzodiazepines Scrn NEGATIVE 08/14/20 05:45 Urine Cocaine Screen NEGATIVE 08/14/20 05:45 U Marijuana (THC) Screen NEGATIVE 08/14/20 05:45 Serum Alcohol 227 mg/dL (NONE DETECTED) 08/13/20 20:46 Hepatitis A IgM Ab Negative (Negative) 08/15/20 04:52 Hep Bs Antigen Negative (Negative) 08/15/20 04:52 Hep B Core IgM Ab Negative (Negative) 08/15/20 04:52 Hepatitis C Antibody <0.1 s/co ratio (0.0-0.9) 08/15/20 04:52 SARS-CoV-2 (PCR) NEGATIVE (NEGATIVE) 08/14/20 05:45 Impressions: Ankle X-Ray 08/13/20 00:00 IMPRESSION: Comminuted distal tibia and fibular fractures as described. Lower Extremity CT 08/13/20 20:58 IMPRESSION: Highly comminuted fractures of the distal tibia and fibula. The ankle mortise remains intact TECHNICAL DOCUMENTATION: Quality ID # 436: Final reports with documentation of one or more dose reduction techniques (e.g., Automated exposure control, adjustment of the mA and/or kV according to patient size, use of iterative reconstruction technique) copyright 2011 [employer]- All Rights Reserved Fluoroscopy 08/14/20 00:00 IMPRESSION: IMAGE(S) OBTAINED DURING PROCEDURE. Tibia/Fibula X-Ray 08/14/20 00:00 IMPRESSION: IMAGE(S) OBTAINED DURING PROCEDURE. Tibia/Fibula X-Ray 08/14/20 00:00 IMPRESSION: Postsurgical changes as described. Plan Plan of Treatment: Patient has seen slow progression in terms of physical therapy although given severity of patient's injury would anticipate some limitation in terms of her advancement Occupational Therapy. Currently her pain has been controlled. H&H is stabilized and her alcohol withdrawal symptoms notably improved. Patient no longer appears belligerent and currently has no complaints. At this point patient is orthopedically medically stable for discharge to group home facility when bed available. Stroke Is this a Stroke Patient?: No Acute Heart Failure Is this a Heart Failure Patient?: No
[2020-08-17] MEDS: CEFTRIAXONE 2 GM/D5W RTU 2 GM/50 ML RTUPB IV SCH (17:43)
--- NOTE | 2020-08-17 18:31 | PDOC PROGRESS REPORT ---
Subjective Subjective:: DI LOGAN is a 65 year old female with past medical history significant for alcohol abuse who presents ED after falling while trying to feed her cat. On x- ray and CT scan it was noted the patient has a acute left tibial fracture. Patient was admitted to orthopedic service and medicine was consulted for management of alcohol withdrawal. Patient states she drinks at least 1 bottle of wine per day and has done so for the past 29 years. She states she does to treat likely underlying anxiety and depression. She lives with her son who also states he has alcohol abuse problems as well. Risks and benefits of surgery discussed with patient and her son and they wish to proceed with surgery. Patient is moderate risk due to alcohol withdrawal and long-term alcohol dependency, however benefit of surgery outweighs the risk of surgery at this time. Patient does not take any medications at home. Patient was counseled extensively on alcohol cessation. LFTs and bilirubin elevated although coags are normal. UA consistent with UTI the patient denies urinary symptoms. 08/15/2020 Patient's son came into the hospital today belligerent and yelling at the nursing staff that he did not understand the plan. I called him and discussed the plan in great detail with him and he is in agreement with this now. I dis cussed with the patient that it is unacceptable for family members to be abusive to the nursing staff and she agreed. I have taken over as primary attending after my discussion with Dr. Barger this morning. Apparently, patient was given beer overnight which is probably is not the best course of action given we are trying to get the patient through withdrawal and get her off of alcohol entirely. It should be giving her benzos rather than adding alcohol and I have stopped the beer order. This beer order in particular made the patient's son extremely angry. Do not give the patient any alcohol throughout the rest of this admission. She can likely be discharged to SNF in the next 2 days. 08/16/2020 Patient feeling quite well, calm, does not seem to be agitated or anxious today. Her hemoglobin had acute drop and I rechecked this which showed a higher value than previously. She denies any bleeding of any source. Plan for patient be discharged to SNF tomorrow. Potassium is low and this will be repleted. Urine culture is negative. 08/17/2020 Patient's withdrawal seems to be doing very well today and I believe she is currently on the back end of this process. She is appropriate to be discharged to SNF whenever the patient and her family have chosen a location for her to be discharged. She has no new complaints today. Urine culture is negative. 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 Reason For Visit: FRACTURED TIB/FIB, ALCOHOL WITHDRAWAL Physical Exam Vital Signs: Temp Pulse Resp BP Pulse Ox 98.6 F 85 18 110/65 91 L 08/17/20 16:00 08/17/20 16:00 08/17/20 16:00 08/17/20 16:00 08/17/20 16:00 Intake & Output 08/16/20 08/17/20 08/18/20 06:59 06:59 06:59 Intake Total 1101 933 593 Balance 1101 933 593 Weight 64 kg 65 kg Exam: General appearance: PRESENT: no acute distress, well-developed, well-nourished, calm and well-appearing, states she feels quite well Head exam: PRESENT: atraumatic, normocephalic Eye exam: PRESENT: conjunctiva pink Mouth exam: PRESENT: moist Respiratory exam: PRESENT: clear to auscultation steven. ABSENT: rales, rhonchi, wheezes Cardiovascular exam: PRESENT: RRR. ABSENT: diastolic murmur, rubs, systolic murmur GI/Abdominal exam: PRESENT: normal bowel sounds, soft. ABSENT: distended, guarding, mass, organolmegaly, rebound, tenderness Rectal exam: PRESENT: deferred Extremities exam: PRESENT: joint swelling - Tenderness and edema noted left tibia at fracture site, healing Neurological exam: PRESENT: alert, awake, oriented to person, oriented to place, oriented to time, oriented to situation Psychiatric exam: PRESENT: anxious, normal mood Skin exam: PRESENT: dry, intact, warm Results Laboratory Results: 08/16/20 10:30 08/16/20 04:46 08/16/20 08/16/20 18:33 18:33 Retic Count (auto) 3.83 H Iron 51.0 TIBC 197 L % Saturation 26 Ferritin 1190.00 H Vitamin B12 581.0 Folate 9.00 08/15/20 05:20 Clean Catch Midstream Urine Culture - Final NO GROWTH 2 DAYS Impressions: Ankle X-Ray 08/13/20 00:00 IMPRESSION: Comminuted distal tibia and fibular fractures as described. Lower Extremity CT 08/13/20 20:58 IMPRESSION: Highly comminuted fractures of the distal tibia and fibula. The ankle mortise remains intact TECHNICAL DOCUMENTATION: Quality ID # 436: Final reports with documentation of one or more dose reduction techniques (e.g., Automated exposure control, adjustment of the mA and/or kV according to patient size, use of iterative reconstruction technique) copyright 2011 [employer]- All Rights Reserved Fluoroscopy 08/14/20 00:00 IMPRESSION: IMAGE(S) OBTAINED DURING PROCEDURE. Tibia/Fibula X-Ray 08/14/20 00:00 IMPRESSION: IMAGE(S) OBTAINED DURING PROCEDURE. Assessment and Plan - Diagnosis (1) Alcohol abuse Is this a current diagnosis for this admission?: Yes Plan: [facility] protocol Scheduled low-dose oral Ativan As needed IV Ativan for withdrawal Vitamins, thiamine Counseled on cessation Alcohol withdrawal essentially resolved (2) Alcoholic hepatitis without ascites Is this a current diagnosis for this admission?: Yes (3) Fracture of tibia with fibula, left, closed Qualifiers: Encounter type: initial encounter Qualified Code(s): S82.202A - Unspecified fracture of shaft of left tibia, initial encounter for closed fracture; S82.402A - Unspecified fracture of shaft of left fibula, initial encounter for closed fracture Is this a current diagnosis for this admission?: Yes (4) Fall at home Is this a current diagnosis for this admission?: Yes (5) Alcohol withdrawal Is this a current diagnosis for this admission?: Yes (6) UTI (urinary tract infection) Qualifiers: Urinary tract infection type: acute cystitis Hematuria presence: without hematuria Qualified Code(s): N30.00 - Acute cystitis without hematuria Is this a current diagnosis for this admission?: Yes (7) 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 Is this a current diagnosis for this admission?: Yes Plan: She is not iron deficient If she quits drinking alcohol, blood counts will likely improve - Time Time Spent with patient: 15-24 minutes Medications reviewed and adjusted accordingly: Yes Anticipated Discharge Disposition: Snf Facility Anticipated Discharge Timeframe: within 24 hours - Inpatient Certification Based on my medical assessment, after consideration of the patient's comorbidities, presenting symptoms, or acuity I expect that the services needed warrant INPATIENT care.: Yes I certify that my determination is in accordance with my understanding of Medicare's requirements for reasonable and necessary INPATIENT services [42 CFR 412.3e].: Yes Medical Necessity: Significant Comorbidiites Make Outpatient Treatment Too Risky, Need Close Monitoring Due to Risk of Patient Decompensation, Risk of Complication if Not Cared For in Hospital, Risk of Diagnosis Which Will Require Inpatient Eval/Care/Monitoring
[2020-08-17] MEDS: ZOLPIDEM TARTRATE 5 MG TABLET PO SCH (21:50)
[2020-08-17] MEDS: THIAMINE HCL 100 MG in NORMAL SALINE 50 ML IV SCH (21:50)
[2020-08-18] MEDS: PANTOPRAZOLE SODIUM 20 MG TABLET.DR PO SCH (05:17)
[2020-08-18 05:26] LABS: ANION GAP 6 (5-19); BLOOD UREA NITROGEN 4 mg/dL (7-20); CARBON DIOXIDE 26 mmol/L (22-30); CHLORIDE 105 mmol/L (98-107); GLUCOSE 104 mg/dL (75-110); POTASSIUM 3.7 mmol/L (3.6-5.0)
[2020-08-18 05:28] LABS: HEMATOCRIT 23.9 % (36.0-47.0); HEMOGLOBIN 8.6 g/dL (12.0-15.5); MEAN CORPUSCULAR HEMOGLOBIN 38.4 pg (27.0-33.4); MEAN CORPUSCULAR HGB CONC 35.9 g/dL (32.0-36.0); MEAN CORPUSCULAR VOLUME 107 fl (80-97); PLATELET COUNT 159 10^3/uL (150-450); RED BLOOD COUNT 2.23 10^6/uL (3.72-5.28); RED CELL DISTRIBUTION WIDTH 13.5 % (11.5-14.0); WHITE BLOOD COUNT 3.5 10^3/uL (4.0-10.5)
[2020-08-18 06:30] LABS: ABSOLUTE LYMPHOCYTES# (MANUAL) 0.8 10^3/uL (0.5-4.7); ABSOLUTE MONOCYTES # (MANUAL) 0.1 10^3/uL (0.1-1.4); BASOPHILS % (MANUAL) 0 % (0-2); EOSINOPHILS % (MANUAL) 2 % (0-6); LYMPHOCYTES % (MANUAL) 21 % (13-45); MONOCYTES % (MANUAL) 4 % (3-13); NUCLEATED RED BLOOD CELLS 4 /100 WBC (0); SEGMENTED NEUTROPHILS % (MAN) 72 % (42-78); TOTAL CELLS COUNTED 100
[2020-08-18 06:32] LABS: PLATELET COMMENT ADEQUATE; POLYCHROMASIA SLIGHT; STOMATOCYTES SLIGHT; TEAR DROP CELLS SLIGHT
[2020-08-18] MEDS: ASPIRIN 325 MG TABLET PO SCH (09:21)
[2020-08-18] MEDS: DOCUSATE SODIUM 100 MG CAPSULE PO SCH (09:21)
[2020-08-18] MEDS: MULTIVITAMIN TABLET PO SCH (09:21)
--- NOTE | 2020-08-18 12:48 | PDOC TRANSFER SUMMARY ---
Impression - Admit/DC Date/PCP Admission Date/Primary Care Provider: 08/15/20 16:12 Discharge Date: 08/18/20 - Discharge Diagnosis (1) Alcohol abuse Is this a current diagnosis for this admission?: Yes (2) Alcoholic hepatitis without ascites Is this a current diagnosis for this admission?: Yes (3) Fracture of tibia with fibula, left, closed Is this a current diagnosis for this admission?: Yes (4) Fall at home Is this a current diagnosis for this admission?: Yes (5) Alcohol withdrawal Is this a current diagnosis for this admission?: Yes (6) UTI (urinary tract infection) Is this a current diagnosis for this admission?: Yes (7) 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 Is this a current diagnosis for this admission?: Yes - Additional Information Resuscitation Status: Full Code Discharge Diet: As Tolerated, Regular Discharge Activity: Activity As Tolerated, No Driving, Keep Legs Elevated, Slowly Increase Activity, No tub bath Prescriptions: Aspirin [Aspir-Arely] 325 mg PO DAILY PRN #1 pkg PRN Reason: Oxycodone HCl [Oxy-Ir 5 mg Tablet] 5 mg PO Q4HP PRN #30 tablet PRN Reason: Pain Scale Of 4 Home Medications: Acetaminophen [Tylenol 325 mg Tablet] 975 mg PO Q8 tablet 08/14/20 Aspirin [Aspir-Arely] 325 mg PO DAILY PRN #1 pkg 08/14/20 Diphenhydramine HCl [Benadryl Inj 50 mg/1 ml Vial] 12.5 mg IV .WHILE IN PACU PRN vial 08/14/20 Docusate Sodium [Colace 100 mg Capsule] 100 mg PO DAILY capsule 08/14/20 Multivitamin [Tab-A-Izaiah (Multiple Vitamin) Tablet] 1 tab PO DAILY tablet 08/14/20 Oxycodone HCl [Oxy-Ir 5 mg Tablet] 5 mg PO Q4HP PRN #30 tablet 08/14/20 History of Present Illiness History of Present Illness: DI LOGAN is a 65 year old female with past medical history significant for alcohol abuse who presents ED after falling while trying to feed her cat. On x- ray and CT scan it was noted the patient has a acute left tibial fracture. Patient was admitted to orthopedic service and medicine was consulted for management of alcohol withdrawal. Patient states she drinks at least 1 bottle of wine per day and has done so for the past 29 years. She states she does to treat likely underlying anxiety and depression. She lives with her son who also states he has alcohol abuse problems as well. Risks and benefits of surgery discussed with patient and her son and they wish to proceed with surgery. Patient is moderate risk due to alcohol withdrawal and long-term alcohol dependency, however benefit of surgery outweighs the risk of surgery at this time. Patient does not take any medications at home. Patient was counseled extensively on alcohol cessation. LFTs and bilirubin elevated although coags are normal. UA consistent with UTI the patient denies urinary symptoms. Hospital Course Hospital Course: DI LOGAN is a 65 year old female with past medical history significant for alcohol abuse who presents ED after falling while trying to feed her cat. On x- ray and CT scan it was noted the patient has a acute left tibial fracture. Patient was admitted to orthopedic service and medicine was consulted for management of alcohol withdrawal. Patient states she drinks at least 1 bottle of wine per day and has done so for the past 29 years. She states she does to treat likely underlying anxiety and depression. She lives with her son who also states he has alcohol abuse problems as well. Risks and benefits of surgery discussed with patient and her son and they wish to proceed with surgery. Patient is moderate risk due to alcohol withdrawal and long-term alcohol dependency, however benefit of surgery outweighs the risk of surgery at this time. Patient does not take any medications at home. Patient was counseled extensively on alcohol cessation. LFTs and bilirubin elevated although coags are normal. UA consistent with UTI the patient denies urinary symptoms. 08/15/2020 Patient's son came into the hospital today belligerent and yelling at the nursing staff that he did not understand the plan. I called him and discussed the plan in great detail with him and he is in agreement with this now. I discussed with the patient that it is unacceptable for family members to be abus luke to the nursing staff and she agreed. I have taken over as primary attending after my discussion with Dr. Barger this morning. Apparently, patient was given beer overnight which is probably is not the best course of action given we are trying to get the patient through withdrawal and get her off of alcohol entirely. It should be giving her benzos rather than adding alcohol and I have stopped the beer order. This beer order in particular made the patient's son extremely angry. Do not give the patient any alcohol throughout the rest of this admission. She can likely be discharged to SNF in the next 2 days. 08/16/2020 Patient feeling quite well, calm, does not seem to be agitated or anxious today. Her hemoglobin had acute drop and I rechecked this which showed a higher value than previously. She denies any bleeding of any source. Plan for patient be discharged to SNF tomorrow. Potassium is low and this will be repleted. Urine culture is negative. 08/17/2020 Patient's withdrawal seems to be doing very well today and I believe she is currently on the back end of this process. She is appropriate to be discharged to SNF whenever the patient and her family have chosen a location for her to be discharged. She has no new complaints today. Urine culture is negative. 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 Cleared for discharge on 08/18. Family has decided patient can go to [facility] in [place]. Per orthopedic surgery: "Patient underwent intramedullary nail left tibial shaft fracture on 08/14/2020. Patient tolerated procedure well. Postoperatively she did become belligerent most likely secondary to alcohol withdrawal. She has been managed by the hospitalist and has seen notable improvement. Currently on 08/17/2020 patient's pain notably improved. No issues overnight. Denies numbness or tingling. Does have some discomfort with attempted motion. Has been undergoing physical therapy. Patient did have acute on chronic blood loss anemia although H&H did improve on postop day #2. Denies headache dizziness or loss of conscious. Denies chest pain shortness of breath." (1) Alcohol abuse and withdrawal: Resolved Is this a current diagnosis for this admission?: Yes Plan: [facility] protocol Scheduled low-dose oral Ativan As needed IV Ativan for withdrawal Vitamins, thiamine Counseled on cessation Alcohol withdrawal essentially resolved (2) Alcoholic hepatitis without ascites Is this a current diagnosis for this admission?: Yes (3) Fracture of tibia with fibula, left, closed Qualifiers: Encounter type: initial encounter Qualified Code(s): S82.202A - Unspecified fracture of shaft of left tibia, initial encounter for closed fracture; S82.402A - Unspecified fracture of shaft of left fibula, initial encounter for closed fracture Is this a current diagnosis for this admission?: Yes Orthopedic surgery consulted as above (4) Fall at home Is this a current diagnosis for this admission?: Yes (5) Alcohol withdrawal resolved Is this a current diagnosis for this admission?: Yes (6) UTI (urinary tract infection) resolved Qualifiers: Urinary tract infection type: acute cystitis Hematuria presence: without hematuria Qualified Code(s): N30.00 - Acute cystitis without hematuria Is this a current diagnosis for this admission?: Yes (7) 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 Is this a current diagnosis for this admission?: Yes Plan: She is not iron deficient If she quits drinking alcohol, blood counts will likely improve Physical Exam Vital Signs: Temp Pulse Resp BP Pulse Ox 98.4 F 85 16 109/65 92 08/18/20 11:10 08/18/20 11:10 08/18/20 11:10 08/18/20 11:10 08/18/20 11:10 Intake & Output 08/17/20 08/18/20 08/19/20 06:59 06:59 06:59 Intake Total 933 934 240 Balance 933 934 240 Weight 65 kg 65 kg Exam: General appearance: PRESENT: no acute distress, well-developed, well-nourished, calm and well-appearing, states she is agreeable to discharge to SNF today Head exam: PRESENT: atraumatic, normocephalic Eye exam: PRESENT: conjunctiva pink Mouth exam: PRESENT: moist Respiratory exam: PRESENT: clear to auscultation steven. ABSENT: rales, rhonchi, wheezes Cardiovascular exam: PRESENT: RRR. ABSENT: diastolic murmur, rubs, systolic murmur GI/Abdominal exam: PRESENT: normal bowel sounds, soft. ABSENT: distended, guarding, mass, organolmegaly, rebound, tenderness Rectal exam: PRESENT: deferred Extremities exam: PRESENT: Mild left ankle joint swelling -mild tenderness and edema noted left tibia at fracture site, healing Neurological exam: PRESENT: alert, awake, oriented to person, oriented to place, oriented to time, oriented to situation Psychiatric exam: PRESENT: anxious, normal mood Skin exam: PRESENT: dry, intact, warm Results Laboratory Results: WBC 3.5 10^3/uL (4.0-10.5) L 08/18/20 04:56 RBC 2.23 10^6/uL (3.72-5.28) L 08/18/20 04:56 Hgb 8.6 g/dL (12.0-15.5) L 08/18/20 04:56 Hct 23.9 % (36.0-47.0) L 08/18/20 04:56 MCV 107 fl (80-97) H 08/18/20 04:56 MCH 38.4 pg (27.0-33.4) H 08/18/20 04:56 MCHC 35.9 g/dL (32.0-36.0) 08/18/20 04:56 RDW 13.5 % (11.5-14.0) 08/18/20 04:56 Plt Count 159 10^3/uL (150-450) 08/18/20 04:56 Lymph % (Auto) Not Reportable 08/18/20 04:56 Noble % (Auto) Not Reportable 08/18/20 04:56 Eos % (Auto) Not Reportable 08/18/20 04:56 Baso % (Auto) Not Reportable 08/18/20 04:56 Reticulocyte # 0.085 10^6/uL (0.028-0.122) 08/16/20 18:33 Absolute Neuts (auto) Not Reportable 08/18/20 04:56 Absolute Lymphs (auto) Not Reportable 08/18/20 04:56 Absolute Monos (auto) Not Reportable 08/18/20 04:56 Absolute Eos (auto) Not Reportable 08/18/20 04:56 Absolute Basos (auto) Not Reportable 08/18/20 04:56 Total Counted 100 08/18/20 04:56 Seg Neutrophils % Not Reportable 08/18/20 04:56 Seg Neuts % (Manual) 72 % (42-78) 08/18/20 04:56 Lymphocytes % (Manual) 21 % (13-45) 08/18/20 04:56 Atypical Lymphs % 1 % (0) 08/18/20 04:56 Monocytes % (Manual) 4 % (3-13) 08/18/20 04:56 Eosinophils % (Manual) 2 % (0-6) 08/18/20 04:56 Basophils % (Manual) 0 % (0-2) 08/18/20 04:56 Abs Neuts (Manual) 2.5 10^3/uL (1.7-8.2) 08/18/20 04:56 Abs Lymphs (Manual) 0.8 10^3/uL (0.5-4.7) 08/18/20 04:56 Abs Monocytes (Manual) 0.1 10^3/uL (0.1-1.4) 08/18/20 04:56 Absolute Eos (Manual) 0.1 10^3/uL (0.0-0.6) 08/18/20 04:56 Abs Basophils (Manual) 0.0 10^3/uL (0.0-0.2) 08/18/20 04:56 Nucleated RBCs 4 /100 WBC (0) 08/18/20 04:56 Platelet Comment ADEQUATE 08/18/20 04:56 Polychromasia SLIGHT 08/18/20 04:56 Macrocytosis 2+ 08/18/20 04:56 Tear Drop Cells SLIGHT 08/18/20 04:56 Stomatocytes SLIGHT 08/18/20 04:56 Retic Count (auto) 3.83 % (0.66-2.85) H 08/16/20 18:33 PT 13.0 SEC (11.4-15.4) 08/13/20 20:46 INR 0.96 08/13/20 20:46 Sodium 137.0 mmol/L (137-145) 08/18/20 04:56 Potassium 3.7 mmol/L (3.6-5.0) 08/18/20 04:56 Chloride 105 mmol/L (98-107) 08/18/20 04:56 Carbon Dioxide 26 mmol/L (22-30) 08/18/20 04:56 Anion Gap 6 (5-19) 08/18/20 04:56 BUN 4 mg/dL (7-20) L 08/18/20 04:56 Creatinine 0.50 mg/dL (0.52-1.25) L 08/18/20 04:56 Est GFR ( Amer) > 60 (>60) 08/18/20 04:56 Est GFR (MDRD) Non-Af > 60 (>60) 08/18/20 04:56 Glucose 104 mg/dL (75-110) 08/18/20 04:56 Calcium 9.0 mg/dL (8.4-10.2) 08/18/20 04:56 Iron 51.0 ug/dL (37-170) 08/16/20 18:33 TIBC 197 ug/dL (250-450) L 08/16/20 18:33 % Saturation 26 % 08/16/20 18:33 Ferritin 1190.00 ng/mL (11.1-264.0) H 08/16/20 18:33 Total Bilirubin 1.6 mg/dL (0.2-1.3) H 08/13/20 20:46 Direct Bilirubin 0.6 mg/dL (0.0-0.4) H 08/13/20 20:46 Neonat Total Bilirubin Not Reportable 08/13/20 20:46 Neonat Direct Bilirubin Not Reportable 08/13/20 20:46 Neonat Indirect Bili Not Reportable 08/13/20 20:46 AST 412 U/L (14-36) H 08/13/20 20:46 ALT 127 U/L (<35) H 08/13/20 20:46 Alkaline Phosphatase 117 U/L (38-126) 08/13/20 20:46 Total Protein 6.3 g/dL (6.3-8.2) 08/13/20 20:46 Albumin 4.1 g/dL (3.5-5.0) 08/13/20 20:46 Vitamin B12 581.0 pg/mL (239-931) 08/16/20 18:33 Folate 9.00 ng/mL (>2.76) 08/16/20 18:33 Urine Color KAREN 08/14/20 05:45 Urine Appearance SLIGHTLY-CLOUDY 08/14/20 05:45 Urine pH 5.0 (5.0-9.0) 08/14/20 05:45 Ur Specific [place] 1.028 08/14/20 05:45 Urine Protein 30 mg/dL (NEGATIVE) H 08/14/20 05:45 Urine Glucose (UA) NEGATIVE mg/dL (NEGATIVE) 08/14/20 05:45 Urine Ketones 20 mg/dL (NEGATIVE) H 08/14/20 05:45 Urine Blood NEGATIVE (NEGATIVE) 08/14/20 05:45 Urine Nitrite (Reflex) POSITIVE (NEGATIVE) H 08/14/20 05:45 Urine Bilirubin NEGATIVE (NEGATIVE) 08/14/20 05:45 Urine Urobilinogen 4.0 mg/dL (<2.0) H 08/14/20 05:45 Leukocyte Esterase Rfl TRACE (NEGATIVE) H 08/14/20 05:45 Urine RBC (Auto) 4 /HPF 08/14/20 05:45 U Hyaline Cast (Auto) 13 /LPF 08/14/20 05:45 Urine Bacteria (Auto) 3+ /HPF 08/14/20 05:45 Urine WBC (Reflex) 25 /HPF 08/14/20 05:45 Squamous Epi Cells Auto 9 /HPF 08/14/20 05:45 Urine Mucus (Auto) MANY /LPF 08/14/20 05:45 Urine Ascorbic Acid 40 (NEGATIVE) H 08/14/20 05:45 Urine Opiates Screen UNCONFIRMED POSITIVE 08/14/20 05:45 Urine Methadone Screen NEGATIVE 08/14/20 05:45 Ur Barbiturates Screen NEGATIVE 08/14/20 05:45 Ur Phencyclidine Scrn NEGATIVE 08/14/20 05:45 Ur Amphetamines Screen NEGATIVE 08/14/20 05:45 U Benzodiazepines Scrn NEGATIVE 08/14/20 05:45 Urine Cocaine Screen NEGATIVE 08/14/20 05:45 U Marijuana (THC) Screen NEGATIVE 08/14/20 05:45 Serum Alcohol 227 mg/dL (NONE DETECTED) 08/13/20 20:46 Hepatitis A IgM Ab Negative (Negative) 08/15/20 04:52 Hep Bs Antigen Negative (Negative) 08/15/20 04:52 Hep B Core IgM Ab Negative (Negative) 08/15/20 04:52 Hepatitis C Antibody <0.1 s/co ratio (0.0-0.9) 08/15/20 04:52 SARS-CoV-2 (PCR) NEGATIVE (NEGATIVE) 08/14/20 05:45 Impressions: Ankle X-Ray 08/13/20 00:00 IMPRESSION: Comminuted distal tibia and fibular fractures as described. Lower Extremity CT 08/13/20 20:58 IMPRESSION: Highly comminuted fractures of the distal tibia and fibula. The ankle mortise remains intact TECHNICAL DOCUMENTATION: Quality ID # 436: Final reports with documentation of one or more dose reduction techniques (e.g., Automated exposure control, adjustment of the mA and/or kV according to patient size, use of iterative reconstruction technique) copyright 2011 [employer]- All Rights Reserved Fluoroscopy 08/14/20 00:00 IMPRESSION: IMAGE(S) OBTAINED DURING PROCEDURE. Tibia/Fibula X-Ray 08/14/20 00:00 IMPRESSION: IMAGE(S) OBTAINED DURING PROCEDURE. Tibia/Fibula X-Ray 08/14/20 00:00 IMPRESSION: Postsurgical changes as described. Plan Plan of Treatment: Follow-up with PCP Follow-up with orthopedic surgery Follow-up with psychiatry Per orthopedic surgery: "Patient has seen slow progression in terms of physical therapy although given severity of patient's injury would anticipate some limitation in terms of her advancement Occupational Therapy. Currently her pain has been controlled. H&H is stabilized and her alcohol withdrawal symptoms notably improved. Patient no longer appears belligerent and currently has no complaints. At this point patient is orthopedically medically stable for discharge to intermediate facility when bed available." Time Spent: Greater than 30 Minutes Stroke Is this a Stroke Patient?: No Acute Heart Failure Is this a Heart Failure Patient?: No
[2020-08-18] MEDS: THIAMINE HCL 100 MG TABLET PO SCH (21:20)
[2020-08-18] MEDS: ZOLPIDEM TARTRATE 5 MG TABLET PO SCH (22:05)
[2020-08-19] MEDS: PANTOPRAZOLE SODIUM 20 MG TABLET.DR PO SCH (05:52)
[2020-08-19] MEDS: ASPIRIN 325 MG TABLET PO SCH (10:26)
[2020-08-19] MEDS: MULTIVITAMIN TABLET PO SCH (10:26)
[2020-08-19] MEDS: DOCUSATE SODIUM 100 MG CAPSULE PO SCH (10:26)
--- NOTE | 2020-08-19 12:25 | PDOC PROGRESS REPORT ---
Subjective Subjective:: DI LOGAN is a 65 year old female with past medical history significant for alcohol abuse who presents ED after falling while trying to feed her cat. On x- ray and CT scan it was noted the patient has a acute left tibial fracture. Patient was admitted to orthopedic service and medicine was consulted for management of alcohol withdrawal. Patient states she drinks at least 1 bottle of wine per day and has done so for the past 29 years. She states she does to treat likely underlying anxiety and depression. She lives with her son who also states he has alcohol abuse problems as well. Risks and benefits of surgery discussed with patient and her son and they wish to proceed with surgery. Patient is moderate risk due to alcohol withdrawal and long-term alcohol dependency, however benefit of surgery outweighs the risk of surgery at this time. Patient does not take any medications at home. Patient was counseled extensively on alcohol cessation. LFTs and bilirubin elevated although coags are normal. UA consistent with UTI the patient denies urinary symptoms. 08/15/2020 Patient's son came into the hospital today belligerent and yelling at the nursing staff that he did not understand the plan. I called him and discussed the plan in great detail with him and he is in agreement with this now. I dis cussed with the patient that it is unacceptable for family members to be abusive to the nursing staff and she agreed. I have taken over as primary attending after my discussion with Dr. Barger this morning. Apparently, patient was given beer overnight which is probably is not the best course of action given we are trying to get the patient through withdrawal and get her off of alcohol entirely. It should be giving her benzos rather than adding alcohol and I have stopped the beer order. This beer order in particular made the patient's son extremely angry. Do not give the patient any alcohol throughout the rest of this admission. She can likely be discharged to SNF in the next 2 days. 08/16/2020 Patient feeling quite well, calm, does not seem to be agitated or anxious today. Her hemoglobin had acute drop and I rechecked this which showed a higher value than previously. She denies any bleeding of any source. Plan for patient be discharged to SNF tomorrow. Potassium is low and this will be repleted. Urine culture is negative. 08/17/2020 Patient's withdrawal seems to be doing very well today and I believe she is currently on the back end of this process. She is appropriate to be discharged to SNF whenever the patient and her family have chosen a location for her to be discharged. She has no new complaints today. Urine culture is negative. 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 08/19/2020 Patient doing well today and working with physical therapy effectively. She states her family and case management are working on getting her approved to go to [facility] in [place] on Thursday. No acute events overnight. Reason For Visit: FRACTURED TIB/FIB, ALCOHOL WITHDRAWAL Physical Exam Vital Signs: Temp Pulse Resp BP Pulse Ox 97.9 F 82 17 130/77 H 94 08/19/20 07:19 08/19/20 07:19 08/19/20 07:19 08/19/20 07:19 08/19/20 07:19 Intake & Output 08/18/20 08/19/20 08/20/20 06:59 06:59 06:59 Intake Total 934 600 Balance 934 600 Weight 65 kg 65 kg Exam: General appearance: PRESENT: no acute distress, well-developed, well-nourished, calm and well-appearing, states she feels well today Head exam: PRESENT: atraumatic, normocephalic Eye exam: PRESENT: conjunctiva pink Mouth exam: PRESENT: moist Respiratory exam: PRESENT: clear to auscultation steven. ABSENT: rales, rhonchi, wheezes Cardiovascular exam: PRESENT: RRR. ABSENT: diastolic murmur, rubs, systolic murmur GI/Abdominal exam: PRESENT: normal bowel sounds, soft. ABSENT: distended, gu arding, mass, organolmegaly, rebound, tenderness Rectal exam: PRESENT: deferred Extremities exam: PRESENT: Left ankle with mild tenderness, healing Neurological exam: PRESENT: alert, awake, oriented to person, oriented to place, oriented to time, oriented to situation Psychiatric exam: PRESENT: anxious, normal mood Skin exam: PRESENT: dry, intact, warm Results Laboratory Results: 08/18/20 04:56 08/18/20 04:56 Impressions: Ankle X-Ray 08/13/20 00:00 IMPRESSION: Comminuted distal tibia and fibular fractures as described. Lower Extremity CT 08/13/20 20:58 IMPRESSION: Highly comminuted fractures of the distal tibia and fibula. The ankle mortise remains intact TECHNICAL DOCUMENTATION: Quality ID # 436: Final reports with documentation of one or more dose reduction techniques (e.g., Automated exposure control, adjustment of the mA and/or kV according to patient size, use of iterative reconstruction technique) copyright 2011 [employer]- All Rights Reserved Fluoroscopy 08/14/20 00:00 IMPRESSION: IMAGE(S) OBTAINED DURING PROCEDURE. Tibia/Fibula X-Ray 08/14/20 00:00 IMPRESSION: IMAGE(S) OBTAINED DURING PROCEDURE. Assessment and Plan - Diagnosis (1) Alcohol abuse Is this a current diagnosis for this admission?: Yes Plan: [facility] protocol Scheduled low-dose oral Ativan As needed IV Ativan for withdrawal Vitamins, thiamine Counseled on cessation Alcohol withdrawal essentially resolved (2) Alcoholic hepatitis without ascites Is this a current diagnosis for this admission?: Yes Plan: Trend LFTs Consider outpatient right upper quadrant ultrasound Counseled on cessation Improving (3) Fracture of tibia with fibula, left, closed Qualifiers: Encounter type: initial encounter Qualified Code(s): S82.202A - Unspecified fracture of shaft of left tibia, initial encounter for closed fracture; S82.402A - Unspecified fracture of shaft of left fibula, initial encounter for closed fracture Is this a current diagnosis for this admission?: Yes Plan: Per orthopedic surgery physician: "Plan for operative intervention today Currently not receiving DVT prophylaxis but will resume postoperatively Ancef on-call to the OR Bedrest at this time, may consider Downs catheter if needed. Keep n.p.o. Discussed intervention with the patient today and answered all questions as well as covering common risks and benefits of treatment options. Patient is elected to proceed with operative intervention of the left lower leg" Pain management Tibia repair on 08/14/2020 Orthopedic surgery was initially the primary admitting service and hospitalist service has now taken over care as of 08/15 Moderate surgical risk due to alcohol withdrawal and chronic abuse with alcoholic hepatitis, benefits outweigh the risks and patient/family agree Discharge to SNF (4) Fall at home Is this a current diagnosis for this admission?: Yes (5) Alcohol withdrawal Is this a current diagnosis for this admission?: Yes (6) UTI (urinary tract infection) Qualifiers: Urinary tract infection type: acute cystitis Hematuria presence: without hematuria Qualified Code(s): N30.00 - Acute cystitis without hematuria Is this a current diagnosis for this admission?: Yes Plan: UA infected, no urinary symptoms Urine culture no growth Ceftriaxone completed Resolved (7) 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 Is this a current diagnosis for this admission?: Yes - Time Time Spent with patient: 15-24 minutes Medications reviewed and adjusted accordingly: Yes Anticipated Discharge Disposition: Usp Facility Anticipated Discharge Timeframe: within 24 hours - Inpatient Certification Based on my medical assessment, after consideration of the patient's comorbidities, presenting symptoms, or acuity I expect that the services needed warrant INPATIENT care.: Yes I certify that my determination is in accordance with my understanding of Medicare's requirements for reasonable and necessary INPATIENT services [42 CFR 412.3e].: Yes Medical Necessity: Significant Comorbidiites Make Outpatient Treatment Too Risky, Need Close Monitoring Due to Risk of Patient Decompensation, Risk of Complication if Not Cared For in Hospital, Risk of Diagnosis Which Will Require Inpatient Eval/Care/Monitoring
[2020-08-19] MEDS: ZOLPIDEM TARTRATE 5 MG TABLET PO SCH (21:27)
[2020-08-19] MEDS: THIAMINE HCL 100 MG TABLET PO SCH (21:27)
[2020-08-20] MEDS: PANTOPRAZOLE SODIUM 20 MG TABLET.DR PO SCH (05:08)
[2020-08-20 06:36] LABS: HEMATOCRIT 25.2 % (36.0-47.0); HEMOGLOBIN 8.9 g/dL (12.0-15.5); MEAN CORPUSCULAR HEMOGLOBIN 38.5 pg (27.0-33.4); MEAN CORPUSCULAR HGB CONC 35.4 g/dL (32.0-36.0); MEAN CORPUSCULAR VOLUME 109 fl (80-97); RED BLOOD COUNT 2.31 10^6/uL (3.72-5.28); RED CELL DISTRIBUTION WIDTH 14.5 % (11.5-14.0); WHITE BLOOD COUNT 4.1 10^3/uL (4.0-10.5)
[2020-08-20 07:03] LABS: ANION GAP 5 (5-19); BLOOD UREA NITROGEN 6 mg/dL (7-20); CALCIUM 9.1 mg/dL (8.4-10.2); CARBON DIOXIDE 28 mmol/L (22-30); CHLORIDE 104 mmol/L (98-107); GLUCOSE 95 mg/dL (75-110); POTASSIUM 3.4 mmol/L (3.6-5.0)
[2020-08-20 07:08] LABS: ABSOLUTE LYMPHOCYTES# (MANUAL) 0.9 10^3/uL (0.5-4.7); ABSOLUTE MONOCYTES # (MANUAL) 0.2 10^3/uL (0.1-1.4); BAND NEUTROPHILS % (MANUAL) 1 % (3-5); BASOPHILS % (MANUAL) 2 % (0-2); EOSINOPHILS % (MANUAL) 1 % (0-6); LYMPHOCYTES % (MANUAL) 22 % (13-45); MONOCYTES % (MANUAL) 5 % (3-13); SEGMENTED NEUTROPHILS % (MAN) 69 % (42-78); TOTAL CELLS COUNTED 100
[2020-08-20 07:09] LABS: POLYCHROMASIA 1+
[2020-08-20 07:10] LABS: POIKILOCYTOSIS 1+
[2020-08-20 07:11] LABS: ANISOCYTOSIS SLIGHT; PLATELET CLUMPS PRESENT; PLATELET COMMENT ADEQUATE; STOMATOCYTES 1+
[2020-08-20 07:12] LABS: PLATELET COUNT 231 10^3/uL (150-450)
[2020-08-20] MEDS: DOCUSATE SODIUM 100 MG CAPSULE PO SCH (09:33)
[2020-08-20] MEDS: MULTIVITAMIN TABLET PO SCH (09:33)
[2020-08-20] MEDS: ASPIRIN 325 MG TABLET PO SCH (09:33)
--- NOTE | 2020-08-20 11:05 | PDOC PROGRESS REPORT ---
Subjective Subjective:: DI LOGAN is a 65 year old female with past medical history significant for alcohol abuse who presents ED after falling while trying to feed her cat. On x- ray and CT scan it was noted the patient has a acute left tibial fracture. Patient was admitted to orthopedic service and medicine was consulted for management of alcohol withdrawal. Patient states she drinks at least 1 bottle of wine per day and has done so for the past 29 years. She states she does to treat likely underlying anxiety and depression. She lives with her son who also states he has alcohol abuse problems as well. Risks and benefits of surgery discussed with patient and her son and they wish to proceed with surgery. Patient is moderate risk due to alcohol withdrawal and long-term alcohol dependency, however benefit of surgery outweighs the risk of surgery at this time. Patient does not take any medications at home. Patient was counseled extensively on alcohol cessation. LFTs and bilirubin elevated although coags are normal. UA consistent with UTI the patient denies urinary symptoms. 08/15/2020 Patient's son came into the hospital today belligerent and yelling at the nursing staff that he did not understand the plan. I called him and discussed the plan in great detail with him and he is in agreement with this now. I dis cussed with the patient that it is unacceptable for family members to be abusive to the nursing staff and she agreed. I have taken over as primary attending after my discussion with Dr. Barger this morning. Apparently, patient was given beer overnight which is probably is not the best course of action given we are trying to get the patient through withdrawal and get her off of alcohol entirely. It should be giving her benzos rather than adding alcohol and I have stopped the beer order. This beer order in particular made the patient's son extremely angry. Do not give the patient any alcohol throughout the rest of this admission. She can likely be discharged to SNF in the next 2 days. 08/16/2020 Patient feeling quite well, calm, does not seem to be agitated or anxious today. Her hemoglobin had acute drop and I rechecked this which showed a higher value than previously. She denies any bleeding of any source. Plan for patient be discharged to SNF tomorrow. Potassium is low and this will be repleted. Urine culture is negative. 08/17/2020 Patient's withdrawal seems to be doing very well today and I believe she is currently on the back end of this process. She is appropriate to be discharged to SNF whenever the patient and her family have chosen a location for her to be discharged. She has no new complaints today. Urine culture is negative. 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 08/19/2020 Patient doing well today and working with physical therapy effectively. She states her family and case management are working on getting her approved to go to [facility] in [place] on Thursday. No acute events overnight. 08/20/2020 No acute events overnight, we are awaiting approval from her insurance company for her to go to SNF. Her pain is well controlled and she feels well overall. Reason For Visit: FRACTURED TIB/FIB, ALCOHOL WITHDRAWAL Physical Exam Vital Signs: Temp Pulse Resp BP Pulse Ox 97.4 F 101 H 20 110/67 95 08/20/20 09:00 08/20/20 08:00 08/20/20 08:00 08/20/20 08:00 08/20/20 08:00 Intake & Output 08/19/20 08/20/20 08/21/20 06:59 06:59 06:59 Intake Total 600 200 Balance 600 200 Weight 65 kg 65 kg Exam: General appearance: PRESENT: no acute distress, well-developed, well-nourished, calm and well-appearing, states she wants to go to SNF soon Head exam: PRESENT: atraumatic, normocephalic Eye exam: PRESENT: conjunctiva pink Mouth exam: PRESENT: moist Respiratory exam: PRESENT: clear to auscultation steven. ABSENT: rales, rhonchi, wheezes Cardiovascular exam: PRESENT: RRR. ABSENT: diastolic murmur, rubs, systolic murmur GI/Abdominal exam: PRESENT: normal bowel sounds, soft. ABSENT: distended, guarding, mass, organolmegaly, rebound, tenderness Rectal exam: PRESENT: deferred Extremities exam: PRESENT: Left ankle with mild tenderness, healing Neurological exam: PRESENT: alert, awake, oriented to person, oriented to place, oriented to time, oriented to situation Psychiatric exam: PRESENT: anxious, normal mood Skin exam: PRESENT: dry, intact, warm Results Laboratory Results: 08/20/20 05:51 08/20/20 05:51 08/20/20 08/20/20 05:51 05:51 WBC 4.1 RBC 2.31 L Hgb 8.9 L Hct 25.2 L MCV 109 H MCH 38.5 H MCHC 35.4 RDW 14.5 H Plt Count 231 Seg Neutrophils % Not Reportable Sodium 137.2 Potassium 3.4 L Chloride 104 Carbon Dioxide 28 Anion Gap 5 BUN 6 L Creatinine 0.55 Est GFR ( Amer) > 60 Glucose 95 Calcium 9.1 Impressions: Ankle X-Ray 08/13/20 00:00 IMPRESSION: Comminuted distal tibia and fibular fractures as described. Lower Extremity CT 08/13/20 20:58 IMPRESSION: Highly comminuted fractures of the distal tibia and fibula. The ankle mortise remains intact TECHNICAL DOCUMENTATION: Quality ID # 436: Final reports with documentation of one or more dose reduction techniques (e.g., Automated exposure control, adjustment of the mA and/or kV according to patient size, use of iterative reconstruction technique) copyright 2011 [employer]- All Rights Reserved Fluoroscopy 08/14/20 00:00 IMPRESSION: IMAGE(S) OBTAINED DURING PROCEDURE. Tibia/Fibula X-Ray 08/14/20 00:00 IMPRESSION: IMAGE(S) OBTAINED DURING PROCEDURE. Assessment and Plan - Diagnosis (1) Alcohol abuse Is this a current diagnosis for this admission?: Yes Plan: [facility] protocol Scheduled low-dose oral Ativan As needed IV Ativan for withdrawal Vitamins, thiamine Counseled on cessation Alcohol withdrawal essentially resolved (2) Alcoholic hepatitis without ascites Is this a current diagnosis for this admission?: Yes Plan: Trend LFTs Consider outpatient right upper quadrant ultrasound Counseled on cessation Improving (3) Fracture of tibia with fibula, left, closed Qualifiers: Encounter type: initial encounter Qualified Code(s): S82.202A - Unspecified fracture of shaft of left tibia, initial encounter for closed fracture; S82.402A - Unspecified fracture of shaft of left fibula, initial encounter for closed fracture Is this a current diagnosis for this admission?: Yes Plan: Per orthopedic surgery physician: "Plan for operative intervention today Currently not receiving DVT prophylaxis but will resume postoperatively Ancef on-call to the OR Bedrest at this time, may consider Downs catheter if needed. Keep n.p.o. Discussed intervention with the patient today and answered all questions as well as covering common risks and benefits of treatment options. Patient is elected to proceed with operative intervention of the left lower leg" Pain management Tibia repair on 08/14/2020 Orthopedic surgery was initially the primary admitting service and hospitalist service has now taken over care as of 08/15 Moderate surgical risk due to alcohol withdrawal and chronic abuse with alcoho lic hepatitis, benefits outweigh the risks and patient/family agree Discharge to SNF (4) Fall at home Is this a current diagnosis for this admission?: Yes (5) Alcohol withdrawal Is this a current diagnosis for this admission?: Yes (6) UTI (urinary tract infection) Qualifiers: Urinary tract infection type: acute cystitis Hematuria presence: without hematuria Qualified Code(s): N30.00 - Acute cystitis without hematuria Is this a current diagnosis for this admission?: Yes (7) 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 Is this a current diagnosis for this admission?: Yes - Time Medications reviewed and adjusted accordingly: Yes Anticipated Discharge Disposition: Detention Facility Anticipated Discharge Timeframe: within 24 hours - Inpatient Certification Based on my medical assessment, after consideration of the patient's comorbidit ies, presenting symptoms, or acuity I expect that the services needed warrant INPATIENT care.: Yes I certify that my determination is in accordance with my understanding of Me rona's requirements for reasonable and necessary INPATIENT services [42 CFR 412.3e].: Yes Medical Necessity: Significant Comorbidiites Make Outpatient Treatment Too Risky, Need Close Monitoring Due to Risk of Patient Decompensation, Risk of Complication if Not Cared For in Hospital, Risk of Diagnosis Which Will Require Inpatient Eval/Care/Monitoring
[2020-08-20] MEDS: MORPHINE SULFATE 10 MG/ML INJ IV PRN (20:00)
[2020-08-20] MEDS: THIAMINE HCL 100 MG TABLET PO SCH (21:14)
[2020-08-20] MEDS ORDERED: ZOLPIDEM TARTRATE 5 MG TABLET PO ONE (22:30)
[2020-08-21] MEDS: PANTOPRAZOLE SODIUM 20 MG TABLET.DR PO SCH (05:12)
--- NOTE | 2020-08-21 05:28 | PDOC PROGRESS REPORT ---
Subjective Progress Note for:: 08/20/20 Subjective:: Patient is doing well this morning. No interval events. Working well physical therapy and continuing to improve. Pain well controlled. Reason For Visit: FRACTURED TIB/FIB, ALCOHOL WITHDRAWAL Physical Exam Vital Signs: Temp Pulse Resp BP Pulse Ox 97.8 F 84 17 118/61 94 08/21/20 00:37 08/21/20 00:37 08/21/20 00:37 08/21/20 00:37 08/21/20 00:37 Intake & Output 08/19/20 08/20/20 08/21/20 06:59 06:59 06:59 Intake Total 600 200 996 Balance 600 200 996 Weight 65 kg 65 kg Physical Exam: Left lower extremity -Pulses 2+ distally -Compartments soft -Sensation grossly intact to L3-4-5 S1 -Motor grossly intact to EHL TA gastroc and quad Splint clean dry and intact. No acute distress, alert and orient x3 Results Laboratory Results: 08/20/20 05:51 08/20/20 05:51 08/20/20 08/20/20 05:51 05:51 WBC 4.1 RBC 2.31 L Hgb 8.9 L Hct 25.2 L MCV 109 H MCH 38.5 H MCHC 35.4 RDW 14.5 H Plt Count 231 Seg Neutrophils % Not Reportable Sodium 137.2 Potassium 3.4 L Chloride 104 Carbon Dioxide 28 Anion Gap 5 BUN 6 L Creatinine 0.55 Est GFR ( Amer) > 60 Glucose 95 Calcium 9.1 Impressions: Ankle X-Ray 08/13/20 00:00 IMPRESSION: Comminuted distal tibia and fibular fractures as described. Lower Extremity CT 08/13/20 20:58 IMPRESSION: Highly comminuted fractures of the distal tibia and fibula. The ankle mortise remains intact TECHNICAL DOCUMENTATION: Quality ID # 436: Final reports with documentation of one or more dose reduction techniques (e.g., Automated exposure control, adjustment of the mA and/or kV according to patient size, use of iterative reconstruction technique) copyright 2011 [employer]- All Rights Reserved Fluoroscopy 08/14/20 00:00 IMPRESSION: IMAGE(S) OBTAINED DURING PROCEDURE. Tibia/Fibula X-Ray 08/14/20 00:00 IMPRESSION: IMAGE(S) OBTAINED DURING PROCEDURE. Assessment & Plan - Diagnosis (1) Fracture of tibia with fibula, left, closed Qualifiers: Encounter type: initial encounter Qualified Code(s): S82.202A - Unspecified fracture of shaft of left tibia, initial encounter for closed fracture; S82.402A - Unspecified fracture of shaft of left fibula, initial encounter for closed fracture Is this a current diagnosis for this admission?: Yes Plan: -May proceed to partial weightbearing Discharge to prison facility or rehab when cleared with insurance Aspirin daily for 6 weeks for DVT prophylaxis Alcohol abuse care as per hospitalist team Keep splint in place until seen in the office, follow-up with me in approximately 10-14 days from the date of surgery -Keep lower extremity elevated in order to avoid swelling. - Time Time Spent with patient: Less than 15 minutes
[2020-08-21] MEDS: ASPIRIN 325 MG TABLET PO SCH (10:12)
[2020-08-21] MEDS: DOCUSATE SODIUM 100 MG CAPSULE PO SCH ×2 (10:12→10:18)
[2020-08-21] MEDS: MULTIVITAMIN TABLET PO SCH (10:12)
--- NOTE | 2020-08-21 13:05 | PDOC TRANSFER SUMMARY ---
Impression - Admit/DC Date/PCP Admission Date/Primary Care Provider: 08/15/20 16:12 Discharge Date: 08/21/20 - Additional Information Resuscitation Status: Full Code Discharge Diet: As Tolerated, Regular Discharge Activity: Activity As Tolerated, No Driving, Keep Legs Elevated, Slowly Increase Activity, No tub bath Referrals: Pearl Marcano [Outside] MATT VEGA JR, DO [ACTIVE PROVISIONAL STAFF] - 08/27/20 9:40 am () Prescriptions: Aspirin [Aspir-Arely] 325 mg PO DAILY PRN #1 pkg PRN Reason: Oxycodone HCl [Oxy-Ir 5 mg Tablet] 5 mg PO Q4HP PRN #30 tablet PRN Reason: Pain Scale Of 4 Home Medications: Acetaminophen [Tylenol 325 mg Tablet] 975 mg PO Q8 tablet 08/14/20 Aspirin [Aspir-Arely] 325 mg PO DAILY PRN #1 pkg 08/14/20 Diphenhydramine HCl [Benadryl Inj 50 mg/1 ml Vial] 12.5 mg IV .WHILE IN PACU PRN vial 08/14/20 Docusate Sodium [Colace 100 mg Capsule] 100 mg PO DAILY capsule 08/14/20 Multivitamin [Tab-A-Izaiah (Multiple Vitamin) Tablet] 1 tab PO DAILY tablet 08/14/20 Oxycodone HCl [Oxy-Ir 5 mg Tablet] 5 mg PO Q4HP PRN #30 tablet 08/14/20 Thiamine HCl [Thiamine 100 mg Tablet] 100 mg PO QHS tablet 08/18/20 History of Present Illiness History of Present Illness: DI LOGAN is a 65 year old female with past medical history significant for alcohol abuse who presents ED after falling while trying to feed her cat. On x- ray and CT scan it was noted the patient has a acute left tibial fracture. Patient was admitted to orthopedic service and medicine was consulted for management of alcohol withdrawal. Patient states she drinks at least 1 bottle of wine per day and has done so for the past 29 years. She states she does to treat likely underlying anxiety and depression. She lives with her son who also states he has alcohol abuse problems as well. Risks and benefits of surgery discussed with patient and her son and they wish to proceed with surgery. Patient is moderate risk due to alcohol withdrawal and long-term alcohol dependency, however benefit of surgery outweighs the risk of surgery at this time. Patient does not take any medications at home. Patient was counseled extensively on alcohol cessation. LFTs and bilirubin elevated although coags are normal. UA consistent with UTI the patient denies urinary symptoms. Hospital Course Hospital Course: 08/15/2020 Patient's son came into the hospital today belligerent and yelling at the nursing staff that he did not understand the plan. I called him and discussed the plan in great detail with him and he is in agreement with this now. I discussed with the patient that it is unacceptable for family members to be abusive to the nursing staff and she agreed. I have taken over as primary attending after my discussion with Dr. Vega this morning. Apparently, patient was given beer overnight which is probably is not the best course of action given we are trying to get the patient through withdrawal and get her off of alcohol entirely. It should be giving her benzos rather than adding alcohol and I have stopped the beer order. This beer order in particular made the patient's son extremely angry. Do not give the patient any alcohol throughout the rest of this admission. She can likely be discharged to SNF in the next 2 days. 08/16/2020 Patient feeling quite well, calm, does not seem to be agitated or anxious today. Her hemoglobin had acute drop and I rechecked this which showed a higher value than previously. She denies any bleeding of any source. Plan for patient be discharged to SNF tomorrow. Potassium is low and this will be repleted. Urine culture is negative. 08/17/2020 Patient's withdrawal seems to be doing very well today and I believe she is currently on the back end of this process. She is appropriate to be discharged to SNF whenever the patient and her family have chosen a location for her to be discharged. She has no new complaints today. Urine culture is negative. 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 Cleared for discharge on 08/18. Family has decided patient can go to [facility] in [place]. Per orthopedic surgery: "Patient underwent intramedullary nail left tibial shaft fracture on 08/14/2020. Patient tolerated procedure well. Postoperatively she did become belligerent most likely secondary to alcohol withdrawal. She has been managed by the hospitalist and has seen notable improvement. Currently on 08/17/2020 patient's pain notably improved. No issues overnight. Denies numbness or tingling. Does have some discomfort with attempted motion. Has been undergoing physical therapy. Patient did have acute on chronic blood loss anemia although H&H did improve on postop day #2. Denies headache dizziness or loss of conscious. Denies chest pain shortness of breath." (1) Alcohol abuse and withdrawal: Resolved Is this a current diagnosis for this admission?: Yes Plan: [facility] protocol Scheduled low-dose oral Ativan As needed IV Ativan for withdrawal Vitamins, thiamine Counseled on cessation Alcohol withdrawal essentially resolved (2) Alcoholic hepatitis without ascites Is this a current diagnosis for this admission?: Yes (3) Fracture of tibia with fibula, left, closed Orthopedic surgery consulted as above, please refer to note. 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 ABSENT: rales, rhonchi, wheezes GI/Abdominal exam: PRESENT: normal bowel sounds, soft. ABSENT: distended, guarding, mass, organolmegaly, rebound, tenderness Extremities exam: PRESENT: full ROM, other - Left lower extremity in place, neurovascularly intact.. ABSENT: calf tenderness, clubbing, pedal edema Neurological exam: PRESENT: alert, awake, oriented to person, oriented to place, oriented to time, oriented to situation, CN II-XII grossly intact. ABSENT: motor sensory deficit Results Laboratory Results: WBC 4.1 10^3/uL (4.0-10.5) 08/20/20 05:51 RBC 2.31 10^6/uL (3.72-5.28) L 08/20/20 05:51 Hgb 8.9 g/dL (12.0-15.5) L 08/20/20 05:51 Hct 25.2 % (36.0-47.0) L 08/20/20 05:51 MCV 109 fl (80-97) H 08/20/20 05:51 MCH 38.5 pg (27.0-33.4) H 08/20/20 05:51 MCHC 35.4 g/dL (32.0-36.0) 08/20/20 05:51 RDW 14.5 % (11.5-14.0) H 08/20/20 05:51 Plt Count 231 10^3/uL (150-450) 08/20/20 05:51 Lymph % (Auto) Not Reportable 08/20/20 05:51 [place]ven % (Auto) Not Reportable 08/20/20 05:51 Eos % (Auto) Not Reportable 08/20/20 05:51 Baso % (Auto) Not Reportable 08/20/20 05:51 Reticulocyte # 0.085 10^6/uL (0.028-0.122) 08/16/20 18:33 Absolute Neuts (auto) Not Reportable 08/20/20 05:51 Absolute Lymphs (auto) Not Reportable 08/20/20 05:51 Absolute Monos (auto) Not Reportable 08/20/20 05:51 Absolute Eos (auto) Not Reportable 08/20/20 05:51 Absolute Basos (auto) Not Reportable 08/20/20 05:51 Total Counted 100 08/20/20 05:51 Seg Neutrophils % Not Reportable 08/20/20 05:51 Seg Neuts % (Manual) 69 % (42-78) 08/20/20 05:51 Band Neutrophils % 1 % (3-5) L 08/20/20 05:51 Lymphocytes % (Manual) 22 % (13-45) 08/20/20 05:51 Atypical Lymphs % 1 % (0) 08/18/20 04:56 Monocytes % (Manual) 5 % (3-13) 08/20/20 05:51 Eosinophils % (Manual) 1 % (0-6) 08/20/20 05:51 Basophils % (Manual) 2 % (0-2) 08/20/20 05:51 Abs Neuts (Manual) 2.9 10^3/uL (1.7-8.2) 08/20/20 05:51 Abs Lymphs (Manual) 0.9 10^3/uL (0.5-4.7) 08/20/20 05:51 Abs Monocytes (Manual) 0.2 10^3/uL (0.1-1.4) 08/20/20 05:51 Absolute Eos (Manual) 0.0 10^3/uL (0.0-0.6) 08/20/20 05:51 Abs Basophils (Manual) 0.1 10^3/uL (0.0-0.2) 08/20/20 05:51 Nucleated RBCs 4 /100 WBC (0) 08/18/20 04:56 Clumped Platelets PRESENT 08/20/20 05:51 Platelet Comment ADEQUATE 08/20/20 05:51 Polychromasia 1+ 08/20/20 05:51 Poikilocytosis 1+ 08/20/20 05:51 Anisocytosis SLIGHT 08/20/20 05:51 Macrocytosis 2+ 08/20/20 05:51 Tear Drop Cells SLIGHT 08/18/20 04:56 Stomatocytes 1+ 08/20/20 05:51 Retic Count (auto) 3.83 % (0.66-2.85) H 08/16/20 18:33 PT 13.0 SEC (11.4-15.4) 08/13/20 20:46 INR 0.96 08/13/20 20:46 Sodium 137.2 mmol/L (137-145) 08/20/20 05:51 Potassium 3.4 mmol/L (3.6-5.0) L 08/20/20 05:51 Chloride 104 mmol/L (98-107) 08/20/20 05:51 Carbon Dioxide 28 mmol/L (22-30) 08/20/20 05:51 Anion Gap 5 (5-19) 08/20/20 05:51 BUN 6 mg/dL (7-20) L 08/20/20 05:51 Creatinine 0.55 mg/dL (0.52-1.25) 08/20/20 05:51 Est GFR ( Amer) > 60 (>60) 08/20/20 05:51 Est GFR (MDRD) Non-Af > 60 (>60) 08/20/20 05:51 Glucose 95 mg/dL (75-110) 08/20/20 05:51 Calcium 9.1 mg/dL (8.4-10.2) 08/20/20 05:51 Iron 51.0 ug/dL (37-170) 08/16/20 18:33 TIBC 197 ug/dL (250-450) L 08/16/20 18:33 % Saturation 26 % 08/16/20 18:33 Ferritin 1190.00 ng/mL (11.1-264.0) H 08/16/20 18:33 Total Bilirubin 1.6 mg/dL (0.2-1.3) H 08/13/20 20:46 Direct Bilirubin 0.6 mg/dL (0.0-0.4) H 08/13/20 20:46 Neonat Total Bilirubin Not Reportable 08/13/20 20:46 Neonat Direct Bilirubin Not Reportable 08/13/20 20:46 Neonat Indirect Bili Not Reportable 08/13/20 20:46 AST 412 U/L (14-36) H 08/13/20 20:46 ALT 127 U/L (<35) H 08/13/20 20:46 Alkaline Phosphatase 117 U/L (38-126) 08/13/20 20:46 Total Protein 6.3 g/dL (6.3-8.2) 08/13/20 20:46 Albumin 4.1 g/dL (3.5-5.0) 08/13/20 20:46 Vitamin B12 581.0 pg/mL (239-931) 08/16/20 18:33 Folate 9.00 ng/mL (>2.76) 08/16/20 18:33 Urine Color KAREN 08/14/20 05:45 Urine Appearance SLIGHTLY-CLOUDY 08/14/20 05:45 Urine pH 5.0 (5.0-9.0) 08/14/20 05:45 Ur Specific [place] 1.028 08/14/20 05:45 Urine Protein 30 mg/dL (NEGATIVE) H 08/14/20 05:45 Urine Glucose (UA) NEGATIVE mg/dL (NEGATIVE) 08/14/20 05:45 Urine Ketones 20 mg/dL (NEGATIVE) H 08/14/20 05:45 Urine Blood NEGATIVE (NEGATIVE) 08/14/20 05:45 Urine Nitrite (Reflex) POSITIVE (NEGATIVE) H 08/14/20 05:45 Urine Bilirubin NEGATIVE (NEGATIVE) 08/14/20 05:45 Urine Urobilinogen 4.0 mg/dL (<2.0) H 08/14/20 05:45 Leukocyte Esterase Rfl TRACE (NEGATIVE) H 08/14/20 05:45 Urine RBC (Auto) 4 /HPF 08/14/20 05:45 U Hyaline Cast (Auto) 13 /LPF 08/14/20 05:45 Urine Bacteria (Auto) 3+ /HPF 08/14/20 05:45 Urine WBC (Reflex) 25 /HPF 08/14/20 05:45 Squamous Epi Cells Auto 9 /HPF 08/14/20 05:45 Urine Mucus (Auto) MANY /LPF 08/14/20 05:45 Urine Ascorbic Acid 40 (NEGATIVE) H 08/14/20 05:45 Urine Opiates Screen UNCONFIRMED POSITIVE 08/14/20 05:45 Urine Methadone Screen NEGATIVE 08/14/20 05:45 Ur Barbiturates Screen NEGATIVE 08/14/20 05:45 Ur Phencyclidine Scrn NEGATIVE 08/14/20 05:45 Ur Amphetamines Screen NEGATIVE 08/14/20 05:45 U Benzodiazepines Scrn NEGATIVE 08/14/20 05:45 Urine Cocaine Screen NEGATIVE 08/14/20 05:45 U Marijuana (THC) Screen NEGATIVE 08/14/20 05:45 Serum Alcohol 227 mg/dL (NONE DETECTED) 08/13/20 20:46 Hepatitis A IgM Ab Negative (Negative) 08/15/20 04:52 Hep Bs Antigen Negative (Negative) 08/15/20 04:52 Hep B Core IgM Ab Negative (Negative) 08/15/20 04:52 Hepatitis C Antibody <0.1 s/co ratio (0.0-0.9) 08/15/20 04:52 SARS-CoV-2 (PCR) NEGATIVE (NEGATIVE) 08/14/20 05:45 Impressions: Ankle X-Ray 08/13/20 00:00 IMPRESSION: Comminuted distal tibia and fibular fractures as described. Lower Extremity CT 08/13/20 20:58 IMPRESSION: Highly comminuted fractures of the distal tibia and fibula. The ankle mortise remains intact TECHNICAL DOCUMENTATION: Quality ID # 436: Final reports with documentation of one or more dose reduction techniques (e.g., Automated exposure control, adjustment of the mA and/or kV according to patient size, use of iterative reconstruction technique) copyright 2011 [employer]- All Rights Reserved Fluoroscopy 08/14/20 00:00 IMPRESSION: IMAGE(S) OBTAINED DURING PROCEDURE. Tibia/Fibula X-Ray 08/14/20 00:00 IMPRESSION: IMAGE(S) OBTAINED DURING PROCEDURE. Tibia/Fibula X-Ray 08/14/20 00:00 IMPRESSION: Postsurgical changes as described. Plan Plan of Treatment: Follow-up with PCP Follow-up with orthopedic surgery Follow-up with psychiatry Per orthopedic surgery: "Patient has seen slow progression in terms of physical therapy although given severity of patient's injury would anticipate some limitation in terms of her advancement Occupational Therapy. Currently her pain has been controlled. H&H is stabilized and her alcohol withdrawal symptoms notably improved. Patient no longer appears belligerent and currently has no complaints. At this point patient is orthopedically medically stable for discharge to long-term facility when bed available." Stroke Is this a Stroke Patient?: No Acute Heart Failure Is this a Heart Failure Patient?: No
[2020-08-21 13:09] VITALS: BP 111/69
[2020-08-21] MEDS ORDERED: INFLUENZA QUAD (6MOS+) 2020-21 VAC 0.5 ML SYR IM ONE (13:59)
== END 2020-08-21 14:15 | disposition home health service (06) | DRG 493 ==
LOC: ER 17:54 → EH 21:12 → INTOOBSV 21:12 → 4N 08-14 01:06 → OBSVTOIN 08-15 16:12
PROVIDERS: ADMIT Orthopaedic Surgery; ATTEND Internal Medicine
PROC: 0QSH36Z Reposition Left Tibia with Intramedullary Internal Fixation Device, Percutaneous Approach (ICD-10-PCS; 2020-08-14)
PROC: 0QSK36Z Reposition Left Fibula with Intramedullary Internal Fixation Device, Percutaneous Approach (ICD-10-PCS; principal; 2020-08-14 15:00)
PROC: 3E02340 Introduction of Influenza Vaccine into Muscle, Percutaneous Approach (ICD-10-PCS; 2020-08-21)
PROC: HZ2ZZZZ Detoxification Services for Substance Abuse Treatment (ICD-10-PCS; 2020-08-21)
DX: S82.252A Displaced comminuted fracture of shaft of left tibia, initial encounter for closed fracture (principal); N30.00 Acute cystitis without hematuria; F10.239 Alcohol dependence with withdrawal, unspecified; D62 Acute posthemorrhagic anemia; S82.452A Displaced comminuted fracture of shaft of left fibula, initial encounter for closed fracture; W01.0XXA Fall on same level from slipping, tripping and stumbling without subsequent striking against object, initial encounter; Y93.K9 Activity, other involving animal care; Y92.009 Unspecified place in unspecified non-institutional (private) residence as the place of occurrence of the external cause; M89.8X9 Other specified disorders of bone, unspecified site; K70.11 Alcoholic hepatitis with ascites; D75.89 Other specified diseases of blood and blood-forming organs; F10.20 Alcohol dependence, uncomplicated; Y90.7 Blood alcohol level of 200-239 mg/100 ml; Z20.828 Contact with and (suspected) exposure to other viral communicable diseases; Z23 Encounter for immunization; Z79.899 Other long term (current) drug therapy; Z79.82 Long term (current) use of aspirin
CPT/HCPCS: 01480; 36415; 64447; 76942; 80048; 80053; 80074; 80307; 81001; 82607; 82728; 82746; 83540; 83550; 85025; 85045; 85610; 87086; 87635; 90471; 90686; 93005; 93010; 96374; 96375; 99285; C1713; C1769; C9803; G0008; G0378; J0690; J0696; J2250; J2270; J2405; J2704; J2795; J3010; J3411; J3480; J3490